=== PATIENT | female | born 1930 | race Caucasian/White ===

== ENCOUNTER 2016-08-27 01:29 | Inpatient (IN) | payer BC, MEDICARE ==
--- NOTE | 2016-08-27 01:44 | ED ---
General Adult HPI - General Chief complaint: Extremity Injury, Lower Stated complaint: Right Knee Pain-no injury Time Seen by Provider: 08/27/16 01:31 Source: patient, RN notes reviewed Mode of arrival: EMS Limitations: no limitations - History of Present Illness Initial comments: 85-year-old female presents emergency Department with a chief complaint of right knee pain as well as blood per rectum. Patient states she was started on Xeralto about to 3 months ago. Patient states she's noticed blood in her stool. Patient states that over the last week she's noticed some inflammation to the right knee and some tenderness to touch. Patient states today she is having difficult time walking so she thought that she should be seen. Patient states while she is here she thought she was as well. Patient denies any lightheadedness or dizziness. Patient denies any falls traumas or injuries. Patient states she was concerned. Patient denies any recent fever, chills, shortness of breath, chest pain, back pain, abdominal pain, nausea vomiting, numbness or tingling, dysuria or hematuria, constipation or diarrhea, headaches or visual changes, or any other current symptoms. - Related Data Home Medications Medication Instructions Recorded Confirmed Atenolol 25 mg PO BID 11/15/14 10/31/15 Furosemide [Lasix] 40 mg PO BID 11/15/14 10/31/15 Previous Rx's Medication Instructions Recorded Colchicine 0.6 mg PO RT-QID #10 tablet 10/31/15 HYDROcodone/APAP 5-325MG [[place] 1 each PO Q6HR PRN #20 tab 10/31/15 5-325] Allergies Allergy/AdvReac Type Severity Reaction Status Date / Time No Known Allergies Allergy Verified 08/27/16 01:40 Review of Systems ROS Statement: Those systems with pertinent positive or pertinent negative responses have been documented in the HPI. ROS Other: All systems not noted in ROS Statement are negative. Past Medical History Past Medical History: Atrial Fibrillation, Diabetes Mellitus, Hypertension Additional Past Medical History / Comment(s): gout, arthritis History of Any Multi-Drug Resistant Organisms: None Reported Past Surgical History: Adenoidectomy, Appendectomy, Heart Catheterization With Stent, Tonsillectomy Past Psychological History: No Psychological Hx Reported Smoking Status: Never smoker Past Alcohol Use History: None Reported Past Drug Use History: None Reported General Exam Limitations: no limitations General appearance: alert, in no apparent distress Head exam: Present: atraumatic, normocephalic, normal inspection Neck exam: Present: normal inspection. Absent: tenderness, meningismus, lymphadenopathy Respiratory exam: Present: normal lung sounds bilaterally. Absent: respiratory distress, wheezes, rales, rhonchi, stridor Cardiovascular Exam: Present: regular rate, normal rhythm, normal heart sounds. Absent: systolic murmur, diastolic murmur, rubs, gallop, clicks GI/Abdominal exam: Present: soft, normal bowel sounds. Absent: distended, tenderness, guarding, rebound, rigid Rectal exam: Present: normal inspection, normal rectal tone, bloody stool, hemorrhoids. Absent: mass, tenderness Right Upper Leg exam: Present: normal inspection, full ROM Knee exam: Present: full ROM, tenderness (To the anterior aspect of the knee), swelling (Anterior aspect), erythema (Anterior aspect). Absent: abrasion, laceration, ecchymosis, deformity, crepitus, dislocation Lower Leg exam: Present: full ROM. Absent: tenderness, swelling Neurovascular tendon exam: Present: no vascular compromise Back exam: Present: normal inspection Neurological exam: Present: alert, oriented X3, CN II-XII intact Psychiatric exam: Present: normal affect, normal mood Skin exam: Present: warm, dry, intact, normal color. Absent: rash Course Vital Signs 08/27/16 01:38 Temperature 98.7 F Pulse Rate 99 Respiratory 18 Rate Blood Pressure 134/64 O2 Sat by Pulse 96 Oximetry Medical Decision Making - Medical Decision Making 85-year-old female presents for appears to be a GI bleed as well as right knee pain. At this time lab work is reviewed that shows a hemoglobin of 7.1. Dr. Salomon Dykes was discussed the case with who would like patient transfuse. At this time we will hold the patient's overall toe. Patient also does appear to have a suprapatellar bursitis at this time. We did consult orthopedic or Dr. Latif child's request we did give the patient 1 dose of steroids here and put her on pain medication. She will be admitted. - Lab Data Result diagrams: 08/27/16 01:45 08/27/16 01:45 Lab Results 08/27/16 08/27/16 08/27/16 Range/Units 01:45 01:45 01:45 WBC 6.7 (3.8-10.6) k/uL RBC 2.53 L (3.80-5.40) m/uL Hgb 7.1 L (11.4-16.0) gm/dL Hct 22.3 L (34.0-46.0) % MCV 88.1 (80.0-100.0) fL MCH 28.0 (25.0-35.0) pg MCHC 31.8 (31.0-37.0) g/dL RDW 18.3 H (11.5-15.5) % Plt Count 161 (150-450) k/uL Neutrophils % 67 % Lymphocytes % 21 % Monocytes % 7 % Eosinophils % 2 % Basophils % 0 % Neutrophils # 4.5 (1.3-7.7) k/uL Lymphocytes # 1.4 (1.0-4.8) k/uL Monocytes # 0.4 (0-1.0) k/uL Eosinophils # 0.1 (0-0.7) k/uL Basophils # 0.0 (0-0.2) k/uL Hypochromasia Slight Anisocytosis Slight PT (9.0-12.0) sec INR (<1.1) APTT (22.0-30.0) sec Sodium 140 (137-145) mmol/L Potassium 4.7 (3.5-5.1) mmol/L Chloride 106 (98-107) mmol/L Carbon Dioxide 24 (22-30) mmol/L Anion Gap 10 mmol/L BUN 27 H (7-17) mg/dL Creatinine 1.10 H (0.52-1.04) mg/dL Est GFR (MDRD) Af Amer 57 (>60 ml/min/1.73 sqM) Est GFR (MDRD) Non-Af 47 (>60 ml/min/1.73 sqM) Glucose 175 H (74-99) mg/dL Uric Acid 5.9 (3.7-7.4) mg/dL Calcium 9.6 (8.4-10.2) mg/dL Total Bilirubin 0.5 (0.2-1.3) mg/dL AST 19 (14-36) U/L ALT 23 (9-52) U/L Alkaline Phosphatase 63 (38-126) U/L C-Reactive Protein 15.5 H (<10.0) mg/L Total Protein 6.3 (6.3-8.2) g/dL Albumin 3.9 (3.5-5.0) g/dL Stool Occult Blood (Negative) Blood Type A Negative Blood Type Recheck A Neg Antibody Screen NEGATIVE Spec Expiration Date 08/30/2016 - 234408/27/16 08/27/16 Range/Units 01:45 01:45 WBC (3.8-10.6) k/uL RBC (3.80-5.40) m/uL Hgb (11.4-16.0) gm/dL Hct (34.0-46.0) % MCV (80.0-100.0) fL MCH (25.0-35.0) pg MCHC (31.0-37.0) g/dL RDW (11.5-15.5) % Plt Count (150-450) k/uL Neutrophils % % Lymphocytes % % Monocytes % % Eosinophils % % Basophils % % Neutrophils # (1.3-7.7) k/uL Lymphocytes # (1.0-4.8) k/uL Monocytes # (0-1.0) k/uL Eosinophils # (0-0.7) k/uL Basophils # (0-0.2) k/uL Hypochromasia Anisocytosis PT 14.1 H (9.0-12.0) sec INR 1.4 (<1.1) APTT 30.2 H (22.0-30.0) sec Sodium (137-145) mmol/L Potassium (3.5-5.1) mmol/L Chloride (98-107) mmol/L Carbon Dioxide (22-30) mmol/L Anion Gap mmol/L BUN (7-17) mg/dL Creatinine (0.52-1.04) mg/dL Est GFR (MDRD) Af Amer (>60 ml/min/1.73 sqM) Est GFR (MDRD) Non-Af (>60 ml/min/1.73 sqM) Glucose (74-99) mg/dL Uric Acid (3.7-7.4) mg/dL Calcium (8.4-10.2) mg/dL Total Bilirubin (0.2-1.3) mg/dL AST (14-36) U/L ALT (9-52) U/L Alkaline Phosphatase (38-126) U/L C-Reactive Protein (<10.0) mg/L Total Protein (6.3-8.2) g/dL Albumin (3.5-5.0) g/dL Stool Occult Blood Positive H (Negative) Blood Type Blood Type Recheck Antibody Screen Spec Expiration Date Disposition Clinical Impression: GI bleed, Anemia, Suprapatellar bursitis of right knee Disposition: ADMITTED IP TO THIS [facility] Condition: Stable Referrals: Giuseppe Ferrell MD [Primary Care Provider] - 1-2 days Time of Disposition: 03:11 Decision Date: 08/27/16 Decision Time: 03:11
[2016-08-27] MEDS ORDERED: HYDROmorphone 1 MG/ML 1 ML SYRINGE IVP STA (01:58)
[2016-08-27 02:16] LABS: C Reactive Protein 15.5 mg/L (<10.0); Calcium 9.6 mg/dL (8.4-10.2); Potassium 4.7 mmol/L (3.5-5.1); Total Bilirubin 0.5 mg/dL (0.2-1.3); Total Protein 6.3 g/dL (6.3-8.2); Uric Acid 5.9 mg/dL (3.7-7.4)
[2016-08-27 02:18] LABS: INR 1.4 (<1.1); Partial Thromboplastin Time 30.2 sec (22.0-30.0); Prothrombin Time 14.1 sec (9.0-12.0)
[2016-08-27 02:22] LABS: Anisocytosis Slight; Basophils % (A) 0 %; CH 28.4; CHCM 32.4; Eosinophils # (A) 0.1 k/uL (0-0.7); Eosinophils % (A) 2 %; HCT 22.3 % (34.0-46.0); HDW 3.28; HGB 7.1 gm/dL (11.4-16.0); Hypochromasia Slight; Luc # (Auto) 0.25; Luc % (Auto) 4; Lymphocytes # (A) 1.4 k/uL (1.0-4.8); Lymphocytes % (A) 21 %; MCHC 31.8 g/dL (31.0-37.0); MCV 88.1 fL (80.0-100.0); Mean Platelet Volume 7.8; Monocytes # (A) 0.4 k/uL (0-1.0); Monocytes % (A) 7 %; Neutrophils # (A) 4.5 k/uL (1.3-7.7); Neutrophils % (A) 67 %; RBC 2.53 m/uL (3.80-5.40); RDW 18.3 % (11.5-15.5); WBC 6.7 k/uL (3.8-10.6); WBC (Perox) 6.85
--- NOTE | 2016-08-27 03:01 | XR ---
EXAM: XR Abdomen Complete, 2 or More Views CLINICAL HISTORY: Reason: Right knee pain and swelling 4-5 days. Blood found in underwear. TECHNIQUE: Frontal view of the abdomen/pelvis with upright view of the abdomen. COMPARISON: None. FINDINGS: Abdomen: Moderate to large amount of stool throughout the colon and rectum which may represent constipation. Nonobstructive bowel gas pattern. No free air. Cholecystectomy clips in the right upper quadrant. Phleboliths projected over the pelvis. Bones: No acute osseous abnormality identified. Degenerative changes of the hips and lumbar spine and pubic symphysis. Soft tissues: Normal. Lower chest: Normal. IMPRESSION: Moderate to large amount of stool throughout the colon and rectum may represent constipation. No evidence of bowel obstruction or free air. EXAM: XR Right Knee, 3 views CLINICAL HISTORY: Reason: Right knee pain and swelling 4-5 days. Blood found in underwear. TECHNIQUE: Three views of the right knee. COMPARISON: Right knee radiograph on 10/31/2015. FINDINGS: Bones/joints: No acute fracture or dislocation identified. Stable tricompartmental degenerative changes of the right knee, most prominent in the medial and patellofemoral compartments with joint space loss, osteophyte formation, and subchondral cyst formation. Osteopenia. Trace knee joint effusion, decreased compared to prior exam in 2016. Soft tissues: Vascular calcifications. Generalized soft tissue edema. IMPRESSION: 1. No acute fracture or dislocation. 2. Osteopenia with stable tricompartmental degenerative changes of the right knee. 3. Generalized soft tissue edema. Trace knee joint effusion, decreased compared to prior exam in 2016.
[2016-08-27] MEDS ORDERED: NALOXONE 0.4 MG/ML 1 ML VIAL IV PRN (03:08)
[2016-08-27] MEDS ORDERED: ONDANSETRON 4 MG/2 ML VIAL IVP PRN (03:08)
[2016-08-27] MEDS ORDERED: ACETAMINOPHEN TAB 325 MG TAB PO PRN (03:08)
[2016-08-27] MEDS ORDERED: methylPREDNISolone SOD SUCCI 125 MG/2 ML VIAL IV STA (03:10)
[2016-08-27 03:29] LABS: Erythrocyte Sedimentation Rate 47 mm/hr (0-20)
[2016-08-27] MEDS: SODIUM CHLORIDE 0.9% 1,000 ML IV SCH ×2 (03:57→16:32)
[2016-08-27] MEDS: HYDROcodone/APAP 5-325MG 1 EACH TAB PO PRN ×2 (04:18→08:29)
[2016-08-27 07:56] VITALS: RESP 16
[2016-08-27] MEDS: INSULIN LISPRO (humaLOG) 300 UNIT/3 ML VIAL SQ SCH ×4 (08:47→21:05)
[2016-08-27 08:50] LABS: Appearance,Urine Clear (Clear); Bacteria,Urine Rare /hpf; Bilirubin,Urine Negative (Negative); Glucose,Urine (UA) Negative (Negative); Ketones,Urine Negative (Negative); Leukocyte Esterase,Urine Moderate (Negative); Mucus,Urine Rare /hpf; Nitrite,Urine Negative (Negative); PH, Urine 5.5 (5.0-8.0); Particle Count 3284; Protein,Urine Negative (Negative); RBC,Urine 4 /hpf (0-5); Specific Gravity,Urine 1.008 (1.001-1.035); Squamous Epithelial Cell,Urine 1 /hpf (0-4); UA Billing (MACRO vs. MICRO) MICRO; Urobilinogen,Urine <2.0 mg/dL (<2.0); WBC,Urine 6 /hpf (0-5)
[2016-08-27 08:52] LABS: Glucose,Whole Blood 317 mg/dL (75-99)
--- NOTE | 2016-08-27 10:13 | P.CNOR ---
History of Present Illness - HPI Consult date: 08/27/16 History of present illness: This is an 85-year-old female admitted to [facility] through the emergency department yesterday with complaint of right knee pain and history of blood in her stools. She denies any trauma or injury to the right knee. She states that she is been having some increased pain to the right knee for the past couple of weeks. Past Medical History Past Medical History: Atrial Fibrillation, Diabetes Mellitus, Hypertension Additional Past Medical History / Comment(s): gout, arthritis History of Any Multi-Drug Resistant Organisms: None Reported Past Surgical History: Adenoidectomy, Appendectomy, Heart Catheterization With Stent, Tonsillectomy Additional Past Surgical History / Comment(s): 2 cardiac stents & Past Anesthesia/Blood Transfusion Reactions: No Reported Reaction Date of Last Stent Placement:: 03/2016 Past Psychological History: No Psychological Hx Reported Smoking Status: Never smoker Past Alcohol Use History: None Reported Past Drug Use History: None Reported - Past Family History Mother Family Medical History: Chest Pain / Angina, Coronary Artery Disease (CAD), Diabetes Mellitus Father Additional Family Medical History / Comment(s): stomach cancer Medications and Allergies Home Medications Medication Instructions Recorded Confirmed Type Furosemide [Lasix] 40 mg PO DAILY 11/15/14 08/27/16 History Allopurinol [Zyloprim] 100 mg PO DAILY 08/27/16 08/27/16 History Aspirin [Adult Low Dose Aspirin EC] 81 mg PO DAILY 08/27/16 08/27/16 History Atorvastatin [Lipitor] 20 mg PO HS 08/27/16 08/27/16 History Carvedilol [Coreg] 6.25 mg PO BID 08/27/16 08/27/16 History Clopidogrel [Plavix] 75 mg PO HS 08/27/16 08/27/16 History Digoxin [Lanoxin] 125 mcg PO DIRECTED 08/27/16 08/27/16 History INSULIN LISPRO (HumaLOG) [humaLOG] See Protocol SQ AC-TID 08/27/16 08/27/16 History Insulin Detemir [Levemir] 18 units SQ DAILY 08/27/16 08/27/16 History Lisinopril [Zestril] 10 mg PO HS 08/27/16 08/27/16 History Rivaroxaban [Xarelto] 15 mg PO DAILY 08/27/16 08/27/16 History Allergies Allergy/AdvReac Type Severity Reaction Status Date / Time No Known Allergies Allergy Verified 08/27/16 01:40 Physical Examination This is a pleasant 85-year-old female in no acute distress. She is alert and oriented 3. Exam of her lower extremities reveals mild erythema to the anterior aspect of the knee. There is minimal fluctuance to the prepatellar bursa. She has active knee flexion to about 75 with full extension. There is tenderness with palpation about the prepatellar bursa. There is mild increased warmth noted. She is able straight leg raise without difficulty. She has full foot and ankle motion without difficulty or pain. Neurovascular status to the lower extremities intact. Results Right knee x-ray reveals mild degenerative changes. No acute fracture identified. - Labs Labs: Abnormal Lab Results - Last 24 Hours (Table) 08/27/16 08/27/16 08/27/16 Range/Units 01:45 01:45 01:45 RBC 2.53 L (3.80-5.40) m/uL Hgb 7.1 L (11.4-16.0) gm/dL Hct 22.3 L (34.0-46.0) % RDW 18.3 H (11.5-15.5) % ESR 47 H (0-20) mm/hr PT (9.0-12.0) sec APTT (22.0-30.0) sec BUN 27 H (7-17) mg/dL Creatinine 1.10 H (0.52-1.04) mg/dL Glucose 175 H (74-99) mg/dL POC Glucose (mg/dL) (75-99) mg/dL C-Reactive Protein 15.5 H (<10.0) mg/L Ur Leukocyte Esterase (Negative) Urine WBC (0-5) /hpf Urine Bacteria (None) /hpf Urine Mucus (None) /hpf Stool Occult Blood (Negative) Crossmatch See Detail 08/27/16 08/27/16 08/27/16 Range/Units 01:45 01:45 07:30 RBC (3.80-5.40) m/uL Hgb (11.4-16.0) gm/dL Hct (34.0-46.0) % RDW (11.5-15.5) % ESR (0-20) mm/hr PT 14.1 H (9.0-12.0) sec APTT 30.2 H (22.0-30.0) sec BUN (7-17) mg/dL Creatinine (0.52-1.04) mg/dL Glucose (74-99) mg/dL POC Glucose (mg/dL) (75-99) mg/dL C-Reactive Protein (<10.0) mg/L Ur Leukocyte Esterase Moderate H (Negative) Urine WBC 6 H (0-5) /hpf Urine Bacteria Rare H (None) /hpf Urine Mucus Rare H (None) /hpf Stool Occult Blood Positive H (Negative) Crossmatch 08/27/16 Range/Units 08:47 RBC (3.80-5.40) m/uL Hgb (11.4-16.0) gm/dL Hct (34.0-46.0) % RDW (11.5-15.5) % ESR (0-20) mm/hr PT (9.0-12.0) sec APTT (22.0-30.0) sec BUN (7-17) mg/dL Creatinine (0.52-1.04) mg/dL Glucose (74-99) mg/dL POC Glucose (mg/dL) 317 H (75-99) mg/dL C-Reactive Protein (<10.0) mg/L Ur Leukocyte Esterase (Negative) Urine WBC (0-5) /hpf Urine Bacteria (None) /hpf Urine Mucus (None) /hpf Stool Occult Blood (Negative) Crossmatch H & H 08/27/16 Range/Units 01:45 Hgb 7.1 L (11.4-16.0) gm/dL Hct 22.3 L (34.0-46.0) % Coagulation 08/27/16 Range/Units 01:45 INR 1.4 (<1.1) Result Diagrams: 08/27/16 01:45 08/27/16 01:45 Assessment and Plan (1) Prepatellar bursitis, right knee Status: Acute (2) Right anterior knee pain Status: Acute (3) GI bleed Status: Acute Plan: The clinical and x-ray findings are discussed with the patient. Natural history of prepatellar bursitis is discussed. She states that she is improving since her admission. It is recommended she that she be immobilized for the next week or 2 pending on how she responds. There is no indication at this time for aspiration of the bursa. The patient is afebrile with normal white count. Normally we would recommend anti-inflammatory but this may be contraindicated with her current GI bleed. We'll continue to follow throughout her stay.
[2016-08-27 11:56] LABS: Glucose,Whole Blood 260 mg/dL (75-99)
[2016-08-27 12:01] LABS: Anisocytosis Slight; Basophils % (A) 0 %; Eosinophils % (A) 0 %; HCT 24.5 % (34.0-46.0); HDW 3.34; Hypochromasia Slight; Luc # (Auto) 0.07; Luc % (Auto) 1; Lymphocytes # (A) 0.5 k/uL (1.0-4.8); Lymphocytes % (A) 11 %; MCH 28.7 pg (25.0-35.0); MCHC 32.6 g/dL (31.0-37.0); Mean Platelet Volume 8.1; Monocytes # (A) 0.1 k/uL (0-1.0); Monocytes % (A) 2 %; Neutrophils # (A) 4.1 k/uL (1.3-7.7); Neutrophils % (A) 85 %; RBC 2.79 m/uL (3.80-5.40); RDW 17.2 % (11.5-15.5); WBC 4.8 k/uL (3.8-10.6); WBC (Perox) 5.07
[2016-08-27] MEDS: CARVEDILOL 6.25 MG TAB PO SCH ×2 (13:33→21:05)
[2016-08-27] MEDS: FUROSEMIDE 40 MG TAB PO SCH (13:34)
[2016-08-27] MEDS: MULTIVITAMINS, THERA 1 EACH TAB PO SCH (13:38)
[2016-08-27] MEDS: ALLOPURINOL 100 MG TAB PO SCH (13:38)
[2016-08-27 17:18] LABS: Glucose,Whole Blood 365 mg/dL (75-99)
--- NOTE | 2016-08-27 18:28 | HP ---
DATE OF ADMISSION: 08/27/2016 CHIEF COMPLAINT: Right knee pain and rectal bleeding. This is an 85-year-old white female was brought to the emergency room with because of right knee pain and also she gave history of recurrent rectal bleeding for the past 2 months. Patient has long-standing history of atrial fibrillation. She has been on Coumadin lately she went to [facility] to be with her daughter who took her to a physician there and he placed her on Xarelto and Coumadin was discontinued. Patient thinks that ever since she switched to Xarelto she has had recurrent rectal bleeding. She also has history of gouty arthritis and she has been having severe pain in her right knee. In the emergency room, her CBC showed a hemoglobin of 7.1 and her PT/INR and PTT are within normal limits. WBC and platelets were also within normal limits. An x-ray of the knee showed degenerative arthritis of joint friction. There was soft tissue swelling around the knee. X-ray of the abdomen did not show any evidence of any obstruction. The patient was admitted to the hospital for further evaluation and treatment. Her past medical history reveals that she has multiple chronic medical problems. She is known to have coronary artery disease and has had stent placements in the past. She also has chronic atrial fibrillation, hypertensive cardiovascular disease, diabetes mellitus, and also has history of gouty arthritis. Her current medications include: 1. Humalog insulin. 2. Plavix 75 mg daily. 3. Lipitor 20 mg daily. 4. Coreg 6.25 mg daily. 5. Aspirin 81 mg daily. 6. Zyloprim 100 mg daily. 7. Digoxin 125 mcg daily. 8. Lisinopril 10 mg daily. 9. Xarelto 15 mg daily. 10. Lasix 40 mg b.i.d. 11. Diagonal 5/325 one q.6 hours p.r.n. pain. She has no known drug allergies. SOCIAL HISTORY: She does not smoke. She does not drink alcohol. FAMILY HISTORY: Reveals that her mother had diabetes, hypothyroidism and hypertensive cardiovascular disease. REVIEW OF SYSTEMS: Patient denies any headache. Appetite has been poor lately. She denies any chest pain. She had some shortness of breath on exertion. She has no abdominal pain, but she has recurrent rectal bleeding. She has no polyuria or dysuria. She has no neurological symptoms. PHYSICAL EXAMINATION: Reveals an 85-year-old white female who is alert and oriented. She is in no acute distress. She is obese. Pulse 96 per minute, blood pressure 134/64, temperature 98.7, pulse ox 96. There is no jaundice. There is no generalized lymphadenopathy. Appears anemic. There are no petechiae or bruises. Examination of the ENT negative. Neck is supple. There is no jugular venous distention. There is no goiter. There is no carotid bruit. Heart is in atrial fibrillation with a controlled ventricular rate. Lungs reveal diminished breath sounds at both bases with a few scattered rhonchi bilaterally. ABDOMEN: Soft, obese, nontender. There is no mass palpable. Examination of the lower extremities revealed no pitting edema. Neurologic examination does not reveal any localizing signs. Her stool was positive for occult blood. IMPRESSION: 1. Rectal bleeding. 2. Acute blood loss anemia. 3. Acute prepatellar bursitis right knee. 4. History of coronary artery disease stent with a past history of stent placement. 5. Chronic atrial fibrillation. 6. Hypertensive cardiovascular disease. 7. History of gout. 8. Diabetes mellitus. 9. Renal insufficiency, possibly acute due to the dehydration. Patient will be admitted to the hospital for further evaluation and treatment and her hemoglobin is 7.1. We will give a 1 unit of packed cells transfusion. We will also place her back on her previous medications. Orthopedic consultation will be obtained with regards to her right knee pain and bursitis and also get a GI consultation and Dr. Frank has been consulted. Prognosis is guarded. The diagnoses, prognosis, and therapeutic plans were discussed in detail with the patient. The patient was admitted by me for Dr. Ferrell as I am covering him this weekend.
[2016-08-27 20:24] LABS: Glucose,Whole Blood 310 mg/dL (75-99)
[2016-08-27] MEDS: LISINOPRIL 10 MG TAB PO SCH (21:05)
[2016-08-27] MEDS: ATORVASTATIN 20 MG TAB PO SCH (21:05)
[2016-08-27] MEDS ORDERED: SODIUM CHLORIDE 0.9% 1,000 ML IV SCH (22:30)
--- NOTE | 2016-08-27 23:12 | P.CONS ---
History of Present Illness - Reason for Consult Consult date: 08/27/16 - History of Present Illness 85-year-old female who was admitted through the emergency department for right knee pain as well as blood per rectum. Patient states she was started on Xeralto about to 3 months ago. Patient states she's noticed blood in her stool. Patient states that over the last week she's noticed some inflammation to the right knee and some tenderness to touch. Patient states today she is having difficult time walking. Orthopedic evaluation noted. No interventions recommended for her patellar bursitis. Rectal exam in the ER revealed no masses. No history of colonoscopy. Patient reported constipation and hard stools with blood noted after she strains. Review of Systems Constitutional: No fever, chills or unintentional weight loss Neurologic: No headaches, double vision or sensory or motor changes Cardiopulmonary: No chest pains, SOB or palpitations Gastrointestinal: See PI above Genitourinary: No hematuria, frequency or burning on urination Endocrine: No diabetes or thyroid disease Muskuloskeletal: No joint pains or swelling Skin: No rashes Hematologic: No history of anemia or bleeding tendency Psychiatric: No anxiety or depression Past Medical History Past Medical History: Atrial Fibrillation, Diabetes Mellitus, Hypertension Additional Past Medical History / Comment(s): gout, arthritis History of Any Multi-Drug Resistant Organisms: None Reported Past Surgical History: Adenoidectomy, Appendectomy, Heart Catheterization With Stent, Tonsillectomy Additional Past Surgical History / Comment(s): 2 cardiac stents & Past Anesthesia/Blood Transfusion Reactions: No Reported Reaction Date of Last Stent Placement:: 03/2016 Past Psychological History: No Psychological Hx Reported Smoking Status: Never smoker Past Alcohol Use History: None Reported Past Drug Use History: None Reported - Past Family History Mother Family Medical History: Chest Pain / Angina, Coronary Artery Disease (CAD), Diabetes Mellitus Father Additional Family Medical History / Comment(s): stomach cancer Medications and Allergies Home Medications Medication Instructions Recorded Confirmed Type Furosemide [Lasix] 40 mg PO DAILY 11/15/14 08/27/16 History Allopurinol [Zyloprim] 100 mg PO DAILY 08/27/16 08/27/16 History Aspirin [Adult Low Dose Aspirin EC] 81 mg PO DAILY 08/27/16 08/27/16 History Atorvastatin [Lipitor] 20 mg PO HS 08/27/16 08/27/16 History Carvedilol [Coreg] 6.25 mg PO BID 08/27/16 08/27/16 History Clopidogrel [Plavix] 75 mg PO HS 08/27/16 08/27/16 History Digoxin [Lanoxin] 125 mcg PO MOWEFR 08/27/16 08/27/16 History HYDROcodone/APAP 5-325MG [[place] 1 tab PO Q6HR PRN 08/27/16 08/27/16 History 5-325] INSULIN LISPRO (HumaLOG) [humaLOG] See Protocol SQ AC-TID 08/27/16 08/27/16 History Insulin Detemir [Levemir] 18 units SQ DAILY 08/27/16 08/27/16 History Lisinopril [Zestril] 10 mg PO HS 08/27/16 08/27/16 History Multivitamins, Thera [Multivitamin 1 tab PO DAILY 08/27/16 08/27/16 History (formulary)] Rivaroxaban [Xarelto] 15 mg PO HS 08/27/16 08/27/16 History Allergies Allergy/AdvReac Type Severity Reaction Status Date / Time No Known Allergies Allergy Verified 08/27/16 10:57 Physical Exam Vitals: Vital Signs Temp Pulse Pulse Pulse Resp BP BP 08/27/16 15:00 97.9 F 89 16 125/58 08/27/16 08:10 98.8 F 68 16 121/87 08/27/16 07:00 97.8 F 68 16 121/87 08/27/16 05:40 97.5 F L 91 18 108/59 08/27/16 05:10 97.4 F L 63 18 113/56 08/27/16 05:00 97.8 F 76 20 132/60 08/27/16 03:59 98.0 F 110 H 16 138/74 08/27/16 03:19 97.4 F L 94 18 131/90 08/27/16 02:50 95 18 138/63 08/27/16 02:19 94 18 127/68 08/27/16 01:38 98.7 F 99 18 134/64 Pulse Ox 08/27/16 15:00 97 08/27/16 08:10 98 08/27/16 07:00 98 08/27/16 05:40 96 08/27/16 05:10 99 08/27/16 05:00 98 08/27/16 03:59 98 08/27/16 03:19 96 08/27/16 02:50 95 08/27/16 02:19 97 08/27/16 01:38 96 Intake and Output 08/27/16 08/27/16 08/28/16 14:59 22:59 06:59 Intake Total 310 Balance 310 Intake: Blood Product 310 Rc As-1 Unit 310 [id number] Other: Voiding Method Toilet Toilet # Voids 2 Weight 78.5 kg Patient Weight 08/28/16 06:59 Weight 78.5 kg General: Appeared stated age in NAD Head and neck: Normocephalic and atraumatic, conjunctivae pink and sclerae not icteric, mucous membranes moist and pink. No masses in the neck or tracheal shift Lungs: Clear to auscultation with no duullness to percussion Heart: Regular, no abnormal sounds, murmurs, gallops or friction rubs Abdomen: Soft, no masses, tenderness or organomegalies. BS present Extremities: No clubbing, cyanosis or edema Neurologic: Alert and oriented X 3. Cranial nerves grossly intact. No gross sensory or motor abnormalities. Results CBC & Chem 7: 08/28/16 06:44 08/28/16 06:44 Labs: Abnormal Lab Results - Last 24 Hours (Table) 08/27/16 08/27/16 08/27/16 Range/Units 01:45 01:45 01:45 RBC 2.53 L (3.80-5.40) m/uL Hgb 7.1 L (11.4-16.0) gm/dL Hct 22.3 L (34.0-46.0) % RDW 18.3 H (11.5-15.5) % Plt Count (150-450) k/uL Lymphocytes # (1.0-4.8) k/uL ESR 47 H (0-20) mm/hr PT (9.0-12.0) sec APTT (22.0-30.0) sec BUN 27 H (7-17) mg/dL Creatinine 1.10 H (0.52-1.04) mg/dL Glucose 175 H (74-99) mg/dL POC Glucose (mg/dL) (75-99) mg/dL C-Reactive Protein 15.5 H (<10.0) mg/L Ur Leukocyte Esterase (Negative) Urine WBC (0-5) /hpf Urine Bacteria (None) /hpf Urine Mucus (None) /hpf Stool Occult Blood (Negative) Crossmatch See Detail 08/27/16 08/27/16 08/27/16 Range/Units 01:45 01:45 07:30 RBC (3.80-5.40) m/uL Hgb (11.4-16.0) gm/dL Hct (34.0-46.0) % RDW (11.5-15.5) % Plt Count (150-450) k/uL Lymphocytes # (1.0-4.8) k/uL ESR (0-20) mm/hr PT 14.1 H (9.0-12.0) sec APTT 30.2 H (22.0-30.0) sec BUN (7-17) mg/dL Creatinine (0.52-1.04) mg/dL Glucose (74-99) mg/dL POC Glucose (mg/dL) (75-99) mg/dL C-Reactive Protein (<10.0) mg/L Ur Leukocyte Esterase Moderate H (Negative) Urine WBC 6 H (0-5) /hpf Urine Bacteria Rare H (None) /hpf Urine Mucus Rare H (None) /hpf Stool Occult Blood Positive H (Negative) Crossmatch 08/27/16 08/27/16 08/27/16 Range/Units 08:47 11:38 11:41 RBC 2.79 L (3.80-5.40) m/uL Hgb 8.0 L (11.4-16.0) gm/dL Hct 24.5 L (34.0-46.0) % RDW 17.2 H (11.5-15.5) % Plt Count 121 L (150-450) k/uL Lymphocytes # 0.5 L (1.0-4.8) k/uL ESR (0-20) mm/hr PT (9.0-12.0) sec APTT (22.0-30.0) sec BUN (7-17) mg/dL Creatinine (0.52-1.04) mg/dL Glucose (74-99) mg/dL POC Glucose (mg/dL) 317 H 260 H (75-99) mg/dL C-Reactive Protein (<10.0) mg/L Ur Leukocyte Esterase (Negative) Urine WBC (0-5) /hpf Urine Bacteria (None) /hpf Urine Mucus (None) /hpf Stool Occult Blood (Negative) Crossmatch 08/27/16 08/27/16 Range/Units 17:15 20:23 RBC (3.80-5.40) m/uL Hgb (11.4-16.0) gm/dL Hct (34.0-46.0) % RDW (11.5-15.5) % Plt Count (150-450) k/uL Lymphocytes # (1.0-4.8) k/uL ESR (0-20) mm/hr PT (9.0-12.0) sec APTT (22.0-30.0) sec BUN (7-17) mg/dL Creatinine (0.52-1.04) mg/dL Glucose (74-99) mg/dL POC Glucose (mg/dL) 365 H 310 H (75-99) mg/dL C-Reactive Protein (<10.0) mg/L Ur Leukocyte Esterase (Negative) Urine WBC (0-5) /hpf Urine Bacteria (None) /hpf Urine Mucus (None) /hpf Stool Occult Blood (Negative) Crossmatch Assessment and Plan Plan: Rectal bleeding likely related to perianal pathology, possibly hemorrhoids or fissures secondary to her constipation and hard stools and her use of blood thinners. The patient is recommended immobilization of her right knee for patellar bursitis. Will consider colonoscopy electively as outpatient unless condition changes.
[2016-08-28 07:06] LABS: Anisocytosis Slight; Basophils % (A) 0 %; Eosinophils % (A) 0 %; HCT 26.2 % (34.0-46.0); HDW 3.25; HGB 8.1 gm/dL (11.4-16.0); Hypochromasia Moderate; Luc # (Auto) 0.19; Luc % (Auto) 2; Lymphocytes # (A) 1.3 k/uL (1.0-4.8); Lymphocytes % (A) 16 %; MCH 27.9 pg (25.0-35.0); MCHC 30.8 g/dL (31.0-37.0); MCV 90.6 fL (80.0-100.0); Mean Platelet Volume 8.1; Monocytes # (A) 0.6 k/uL (0-1.0); Monocytes % (A) 7 %; Neutrophils # (A) 6.3 k/uL (1.3-7.7); Neutrophils % (A) 75 %; RBC 2.89 m/uL (3.80-5.40); RDW 17.4 % (11.5-15.5); Reticulocyte % 3.1 % (0.5-2.0); WBC 8.5 k/uL (3.8-10.6); WBC (Perox) 8.31
[2016-08-28 07:06] LABS: Glucose,Whole Blood 159 mg/dL (75-99)
[2016-08-28] MEDS: INSULIN LISPRO (humaLOG) 300 UNIT/3 ML VIAL SQ SCH ×4 (08:24→20:58)
[2016-08-28] MEDS: ALLOPURINOL 100 MG TAB PO SCH (08:33)
[2016-08-28] MEDS: FUROSEMIDE 40 MG TAB PO SCH (08:33)
[2016-08-28] MEDS: MULTIVITAMINS, THERA 1 EACH TAB PO SCH (08:33)
[2016-08-28] MEDS: CARVEDILOL 6.25 MG TAB PO SCH ×2 (08:33→20:57)
[2016-08-28 08:45] LABS: ALT 23 U/L (9-52); AST 15 U/L (14-36); Alkaline Phosphatase 57 U/L (38-126); Anion Gap 10 mmol/L; Blood Urea Nitrogen 21 mg/dL (7-17); Calcium 8.8 mg/dL (8.4-10.2); Carbon Dioxide 21 mmol/L (22-30); Chloride 109 mmol/L (98-107); Glucose 143 mg/dL (74-99); Non-African American GFR(MDRD) 55 (>60 ml/min/1.73 sqM); Potassium 4.6 mmol/L (3.5-5.1); Sodium 140 mmol/L (137-145); Total Bilirubin 0.7 mg/dL (0.2-1.3); Total Protein 6.2 g/dL (6.3-8.2)
[2016-08-28] MEDS ORDERED: INSULIN DETEMIR 100 UNIT/ML 10 ML VIAL SQ SCH (09:00)
[2016-08-28] MEDS ORDERED: DIGOXIN 125 MCG TAB PO SCH (09:00)
[2016-08-28] MEDS: ASPIRIN 81 MG CHEW PO SCH (11:42)
[2016-08-28] MEDS: CLOPIDOGREL 75 MG TAB PO SCH (11:42)
[2016-08-28] MEDS: HYDROcodone/APAP 5-325MG 1 EACH TAB PO PRN ×3 (11:45→17:55)
[2016-08-28 12:11] LABS: Iron 17 ug/dL (37-170)
[2016-08-28 12:22] LABS: Glucose,Whole Blood 213 mg/dL (75-99)
[2016-08-28 12:22] LABS: % Iron Saturation 5.4 % (20-50); Total Iron Binding Capacity 315 ug/dL (265-497)
--- NOTE | 2016-08-28 17:27 | P.PN ---
Subjective Principal diagnosis: Prepatellar bursitis right knee GI bleed This is an 85-year-old female who we are following regarding her prepatellar bursitis of the right knee and right knee pain. The patient has been in a knee immobilizer since yesterday. She removed today for a little while. States that her knee pain is significantly improved since yesterday. She has no new complaints or concerns today. Objective - Vital Signs Vital signs: Vital Signs Temp 98.5 F 08/28/16 14:56 Pulse 84 08/28/16 16:00 Resp 16 08/28/16 16:00 BP 100/57 08/28/16 14:56 Pulse Ox 98 08/28/16 14:56 Intake & Output 08/27/16 08/28/16 08/28/16 18:59 06:59 18:59 Intake Total 310 990 590 Balance 310 990 590 Weight 78.5 kg 78.5 kg Intake: IV 400 Sodium Chloride 0.9% 1, 400 000 ml @ 50 mls/hr IV . Q20H [facility] Rx#:[id number] Intake, IV Titration 350 Amount Sodium Chloride 0.9% 1, 350 000 ml @ 50 mls/hr IV . Q20H [facility] Rx#:[id number] Oral 590 240 Blood Product 310 Rc As-1 Unit 310 [id number] Other: Voiding Method Toilet Toilet Toilet # Voids 2 3 4 - Exam This is a pleasant 85-year-old female in no acute distress. She is alert and oriented 3. Exam of the right lower extremity reveals no erythema or ecchymosis. There is no swelling or fluctuance noted to the prepatellar bursa. There is a slight joint effusion noted. She has improved range of motion of the knee without difficulty or pain. Neurovascular status to the lower extremity is intact. - Labs CBC & Chem 7: 08/28/16 06:44 08/28/16 06:44 Labs: Abnormal Lab Results - Last 24 Hours (Table) 08/27/16 08/28/16 08/28/16 Range/Units 20:23 06:44 06:44 RBC 2.89 L (3.80-5.40) m/uL Hgb 8.1 L (11.4-16.0) gm/dL Hct 26.2 L (34.0-46.0) % MCHC 30.8 L (31.0-37.0) g/dL RDW 17.4 H (11.5-15.5) % Plt Count 149 L (150-450) k/uL Retic Count 3.1 H (0.5-2.0) % Chloride 109 H (98-107) mmol/L Carbon Dioxide 21 L (22-30) mmol/L BUN 21 H (7-17) mg/dL Glucose 143 H (74-99) mg/dL POC Glucose (mg/dL) 310 H (75-99) mg/dL Iron 17 L (37-170) ug/dL % Saturation 5.4 L (20-50) % Total Protein 6.2 L (6.3-8.2) g/dL Albumin 3.4 L (3.5-5.0) g/dL 08/28/16 08/28/16 Range/Units 07:01 12:17 RBC (3.80-5.40) m/uL Hgb (11.4-16.0) gm/dL Hct (34.0-46.0) % MCHC (31.0-37.0) g/dL RDW (11.5-15.5) % Plt Count (150-450) k/uL Retic Count (0.5-2.0) % Chloride (98-107) mmol/L Carbon Dioxide (22-30) mmol/L BUN (7-17) mg/dL Glucose (74-99) mg/dL POC Glucose (mg/dL) 159 H 213 H (75-99) mg/dL Iron (37-170) ug/dL % Saturation (20-50) % Total Protein (6.3-8.2) g/dL Albumin (3.5-5.0) g/dL Assessment and Plan (1) Prepatellar bursitis, right knee Status: Acute (2) Right anterior knee pain Status: Acute (3) GI bleed Status: Acute Plan: The clinical and x-ray findings are discussed with the patient. Natural history of prepatellar bursitis is discussed. She states that she is improving since her admission. It is recommended she that she be immobilized for the next week or 2 pending on how she responds. There is no indication at this time for aspiration of the bursa. The patient is afebrile with normal white count. Normally we would recommend anti-inflammatory but this may be contraindicated with her current GI bleed. She may be discharged from an orthopedic standpoint. The patient would like to follow-up with Dr. Jeff.
[2016-08-28 17:37] LABS: Glucose,Whole Blood 172 mg/dL (75-99)
[2016-08-28] MEDS: SODIUM FERRIC GLUCONAT-SUCROSE 125 MG in SODIUM CHLORIDE 0.9% 100 ML IVPB SCH (17:55)
[2016-08-28] MEDS: SODIUM CHLORIDE 0.9% 1,000 ML IV SCH (19:19)
[2016-08-28 20:36] LABS: Glucose,Whole Blood 160 mg/dL (75-99)
[2016-08-28] MEDS: ATORVASTATIN 20 MG TAB PO SCH (20:57)
[2016-08-28] MEDS: LISINOPRIL 10 MG TAB PO SCH (20:57)
[2016-08-29] MEDS: HYDROcodone/APAP 5-325MG 1 EACH TAB PO PRN ×2 (04:10→16:17)
[2016-08-29 07:24] LABS: Glucose,Whole Blood 155 mg/dL (75-99)
[2016-08-29 07:36] VITALS: BP 139/70; PULSE 98; TEMP 98
[2016-08-29] MEDS: SODIUM FERRIC GLUCONAT-SUCROSE 125 MG in SODIUM CHLORIDE 0.9% 100 ML IVPB SCH (08:16)
[2016-08-29] MEDS: INSULIN LISPRO (humaLOG) 300 UNIT/3 ML VIAL SQ SCH ×2 (08:16→11:58)
[2016-08-29] MEDS: ASPIRIN 81 MG CHEW PO SCH (08:17)
[2016-08-29] MEDS: ALLOPURINOL 100 MG TAB PO SCH (08:17)
[2016-08-29] MEDS: CARVEDILOL 6.25 MG TAB PO SCH (08:17)
[2016-08-29] MEDS: FUROSEMIDE 40 MG TAB PO SCH (08:18)
[2016-08-29] MEDS: CLOPIDOGREL 75 MG TAB PO SCH (08:18)
--- NOTE | 2016-08-29 08:43 | PN ---
DATE OF SERVICE: 08/28/2016 CHIEF COMPLAINT: Re-evaluation. HISTORY OF PRESENT ILLNESS: An 85-year-old who was admitted to the hospital with anemia. The patient also had evidence of lower gastrointestinal bleeding. The patient, however, tells me that about a month or so ago she had some melanotic stools. The patient has been on Xarelto, aspirin and Plavix. She had in April and May a couple of cardiac events. In April she had a stent placed. In May she had episodes of CHF. The patient at present is feeling much better. REVIEW OF SYSTEMS: NEURO: Denies any headaches, dizziness. PSYCH: No anxiety. CARDIAC: No chest pain, angina, palpitation. RESPIRATORY: No shortness of breath, cough, orthopnea, PND. GI: No nausea, vomiting, abdominal pain, diarrhea. Did have a bowel movement yesterday. She said it was dark-colored. : No symptoms of dysuria, hematuria. EXTREMITIES: No pain except to the right knee, which is improved. The patient is able to bear weight and walk. CARDIAC: Denies chest pain, angina, palpitations. RESPIRATORY: No shortness of breath, cough, hemoptysis. PHYSICAL EXAMINATION: Pleasant female. Vital signs reveal temperature 98.2, pulse 82, respirations 16, blood pressure 123/66, pulse ox 96% on room air. HEENT: Normocephalic. NECK: No JVD. Chest is clear to auscultation and percussion. CARDIAC: Irregularly irregular rhythm. Systolic murmur 2/6 at the apex. ABDOMEN: Soft. Bowel sounds present. Rectal examination reveals normal sphincter tone. Stool is brownish, slight amount of reddish mucus. Extremities reveal no edema. Good pulses, both upper and lower extremities. NEUROLOGIC: Awake, alert, oriented with well-coordinated movements. Right knee much improved. Much improved tenderness. The patient does have some warmth with good range of motion. Laboratory assessment: CBC showed a hemoglobin of 8.1, which is stable. Retic count was 3.1. BUN 21, creatinine 0.96, glucose 143, serum iron 17. Albumin 3.4. ASSESSMENT: 1. Gastrointestinal bleeding. 2. The patient on two antiplatelet agents and anticoagulant. 3. Recent stent placement. 4. Iron deficiency anemia. 5. Diabetes mellitus. PLAN: The patient will be given Benefir or iron gluconate IV, two doses at least prior to discharge. The patient will resume aspirin and Plavix for now. Maybe Xarelto in a week. Patient's condition discussed with the patient. Prognosis guarded. Will ambulate the patient today and discontinue the patient's right knee immobilizer. Patient's condition is stable. Prognosis guarded.
--- NOTE | 2016-08-29 09:50 | P.PN ---
Subjective Principal diagnosis: Rectal bleeding 85-year-old female reevaluated today in regards to perirectal bleeding. Last bowel movement was Sunday. Receiving intravenous iron. Denies hematemesis or hematochezia or melena. No abdominal pain. Objective - Vital Signs Vital signs: Vital Signs Temp 98 F 08/29/16 07:00 Pulse 98 08/29/16 07:00 Resp 16 08/29/16 07:00 BP 139/70 08/29/16 07:00 Pulse Ox 94 L 08/29/16 07:00 Intake & Output 08/28/16 08/29/16 08/29/16 18:59 06:59 18:59 Intake Total 590 820 Balance 590 820 Weight 78.5 kg Intake: Intake, IV Titration 350 100 Amount Sodium Chloride 0.9% 1, 350 000 ml @ 50 mls/hr IV . Q20H [facility] Rx#:[id number] Sodium Ferric Gluconat- 100 Sucrose 125 mg In Sodium Chloride 0.9% 100 ml @ 100 mls/hr IVPB DAILY [facility] Rx#:[id number] Oral 240 720 Other: Voiding Method Toilet Toilet # Voids 4 1 # Bowel Movements 1 - Exam General appearance: The patient is alert, oriented, in no acute distress. HET: Head is normocephalic and atraumatic. Pupils are equal and reactive. Oropharynx is clear without lesions. Neck: Supple without lymphadenopathy. Trachea midline. Heart: S1 S2. Regular rate and rhythm. Lungs: No crackles or wheezes are heard. Abdomen: Soft, nontender, nondistended with bowel sounds. No peritoneal signs. No palpable organomegaly or masses. Extremities: Normal skin color and turgor. No cyanosis, rash, ulceration, clubbing, or edema. Radial and pedal pulses are 2/4 bilaterally. Neurological: No focal deficits. Strength and sensation are grossly intact. Rectal: External nonthrombosed tag. Brown stool on finger. No bleeding. No palpable masses. - Labs CBC & Chem 7: 08/28/16 06:44 08/28/16 06:44 Labs: Abnormal Lab Results - Last 24 Hours (Table) 08/28/16 08/28/16 08/28/16 Range/Units 06:44 12:17 17:34 POC Glucose (mg/dL) 213 H 172 H (75-99) mg/dL Iron 17 L (37-170) ug/dL % Saturation 5.4 L (20-50) % 08/28/16 08/29/16 Range/Units 20:32 06:56 POC Glucose (mg/dL) 160 H 155 H (75-99) mg/dL Iron (37-170) ug/dL % Saturation (20-50) % Assessment and Plan (1) Rectal bleeding Narrative/Plan: Suspect perianal pathology in origin possibly hemorrhoidal possible fissure secondary to constipation anticoagulation medications. Status: Acute Plan: 1. Continue supportive measures. Discharge per medicine. 2. Stool softeners daily. 3. Outpatient colonoscopy advised if bleeding recurs and/or persists. Assessment and plan of care discussed with Dr. Shields.
[2016-08-29] MEDS ORDERED: SENNOSIDES-DOCUSATE SODIUM 1 EACH TAB PO SCH (10:00)
[2016-08-29 11:39] LABS: Glucose,Whole Blood 180 mg/dL (75-99)
[2016-08-29] MEDS: MULTIVITAMINS, THERA 1 EACH TAB PO SCH (11:58)
[2016-08-29] MEDS ORDERED: INSULIN DETEMIR 100 UNIT/ML 10 ML VIAL SQ SCH (21:00)
--- NOTE | 2016-09-03 15:03 | P.DS ---
Providers Date of admission: 08/27/16 02:46 Expected date of discharge: 08/29/16 Attending physician: Salomon Dykes Consults: 08/27/16 03:09 Consult Physician Routine Consulting Provider: Milan Moser Consult Reason/Comments: Suprapatellar bursitis Do you want consulting provider notified?: Yes Primary care physician: Giuseppe Ferrell [place] Hospital Course: This 85-year-old female was admitted to the hospital after presenting to the emergency room with complains of pain in the right knee joint. The patient was noted to be anemic in the stool was guaiac positive. The patient has been on aspirin and Plavix and Xarelto. She had been started on this regimen while she was in [place]. She had a subendocardial IL and a stent placed. The patient presents to the hospital because of knee pain. Patient is a poor historian. She did however say that she has had some black stools low while back while she was in [place]. She still occasionally has some blood in his stools. The patient denies any symptoms of dizziness or shortness of breath. She does have dyspnea on exertion. Following admission patient was monitored for any further bleeding. Her a hemoglobin remained stable at about 8.1 range. The patient stool was brown bed or discharge. The patient Xarelto been on hold. The patient was continued on aspirin and Plavix. On the outpatient in a week will resume patient's Xarelto and discontinue aspirin. Patient does run the risk of recurrent GI bleeding. She was seen by GI. They may scope her on the outpatient. Meanwhile patient congestive cardiac failure and coronary artery disease is stable. Patient discharged home on medications. Patient's and right knee evaluated by orthopedic. He did inject steroid in it. Her symptoms had improved some. 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 Patient plans to diet and medical therapy is very poor. She does have history of hypothyroidism on replacement therapy. History of diabetes mellitus on medical therapy. Again she will skip her insulin dosages quite often. She has been counseled number of times for better compliance. Final diagnosis to include 1. Anemia secondary to chronic GI blood loss 2. Recent myocardial infarction and stent placement 3. Coronary atherosclerosis 4. Diabetes mellitus with fair control 5. Chronic atrial fibrillation rate controlled 6. 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 Hypothyroidism 8. Poor compliance 9. Obesity 10. Right knee bursitis secondary to gout Patient Condition at Discharge: Stable Plan - Discharge Summary New Discharge Prescriptions: New Acetaminophen Tab [Tylenol] 650 mg PO Q6HR PRN tab PRN Reason: Mild Pain Or Fever > 100.5 Aspirin 81 mg PO DAILY Clopidogrel [Plavix] 75 mg PO DAILY tab Colchicine [Colcrys] 0.6 mg PO DAILY #30 tablet HYDROcodone/APAP 5-325MG [[place] 5-325] 1 each PO Q6HR PRN #60 tab PRN Reason: Moderate Pain Sennosides-Docusate Sodium [Senokot-S] 2 each PO BID tab Continue Furosemide [Lasix] 40 mg PO DAILY Clopidogrel [Plavix] 75 mg PO HS Atorvastatin [Lipitor] 20 mg PO HS Carvedilol [Coreg] 6.25 mg PO BID Aspirin [Adult Low Dose Aspirin EC] 81 mg PO DAILY Allopurinol [Zyloprim] 100 mg PO DAILY Digoxin [Lanoxin] 125 mcg PO MOWEFR Insulin Detemir [Levemir] 18 units SQ DAILY Lisinopril [Zestril] 10 mg PO HS INSULIN LISPRO (HumaLOG) [humaLOG] See Protocol SQ AC-TID HYDROcodone/APAP 5-325MG [[place] 5-325] 1 tab PO Q6HR PRN PRN Reason: Pain Levothyroxine Sodium 0.137 mg PO DAILY Discontinued Rivaroxaban [Xarelto] 15 mg PO HS No Action Multivitamins, Thera [Multivitamin (formulary)] 1 tab PO DAILY Discharge Medication List Furosemide [Lasix] 40 mg PO DAILY 11/15/14 [History] Allopurinol [Zyloprim] 100 mg PO DAILY 08/27/16 [History] Aspirin [Adult Low Dose Aspirin EC] 81 mg PO DAILY 08/27/16 [History] Atorvastatin [Lipitor] 20 mg PO HS 08/27/16 [History] Carvedilol [Coreg] 6.25 mg PO BID 08/27/16 [History] Clopidogrel [Plavix] 75 mg PO HS 08/27/16 [History] Digoxin [Lanoxin] 125 mcg PO MOWEFR 08/27/16 [History] HYDROcodone/APAP 5-325MG [[place] 5-325] 1 tab PO Q6HR PRN 08/27/16 [History] INSULIN LISPRO (HumaLOG) [humaLOG] See Protocol SQ AC-TID 08/27/16 [History] Insulin Detemir [Levemir] 18 units SQ DAILY 08/27/16 [History] Lisinopril [Zestril] 10 mg PO HS 08/27/16 [History] Multivitamins, Thera [Multivitamin (formulary)] 1 tab PO DAILY 08/27/16 [History ] Acetaminophen Tab [Tylenol] 650 mg PO Q6HR PRN tab 08/29/16 [Rx] Aspirin 81 mg PO DAILY 08/29/16 [Rx] Clopidogrel [Plavix] 75 mg PO DAILY tab 08/29/16 [Rx] Colchicine [Colcrys] 0.6 mg PO DAILY #30 tablet 08/29/16 [Rx] HYDROcodone/APAP 5-325MG [[place] 5-325] 1 each PO Q6HR PRN #60 tab 08/29/16 [Rx] Levothyroxine Sodium 0.137 mg PO DAILY 08/29/16 [History] Sennosides-Docusate Sodium [Senokot-S] 2 each PO BID tab 08/29/16 [Rx] Follow up Appointment(s)/Referral(s): Giuseppe Ferrell MD [Primary Care Provider] - 09/05/16 2:45 pm Del Jeff DO [Doctor of Osteopathic Medicine] - 09/19/16 1:00 pm Patient Instructions/Handouts: Hydrocodone/Acetaminophen (By mouth), Colchicine (By mouth), Low Fiber Diet (DC), Knee Bursitis (GEN), Anemia (DC) Activity/Diet/Wound Care/Special Instructions: Maintain knee immobilizer when up and ambulating. Diet low fiber Activity as tolerated Discharge Disposition: HOME SELF-CARE
== END 2016-08-29 17:00 | disposition home or self-care (01) | DRG 812 ==
LOC: EC 01:29 → 5ONC 02:46
PROVIDERS: ADMIT Internal Medicine; ATTEND Internal Medicine
PROC: 30230N1 Transfusion of Nonautologous Red Blood Cells into Peripheral Vein, Open Approach (ICD-10-PCS; principal; 2016-08-27)
DX: D62 Acute posthemorrhagic anemia (principal); K92.1 Melena; I11.0 Hypertensive heart disease with heart failure; I48.2 Chronic atrial fibrillation; I50.9 Heart failure, unspecified; E11.9 Type 2 diabetes mellitus without complications; E86.0 Dehydration; M10.00 Idiopathic gout, unspecified site; E03.9 Hypothyroidism, unspecified; E66.9 Obesity, unspecified; I25.2 Old myocardial infarction; I25.10 Atherosclerotic heart disease of native coronary artery without angina pectoris; M70.41 Prepatellar bursitis, right knee; D50.9 Iron deficiency anemia, unspecified; K59.00 Constipation, unspecified; M19.90 Unspecified osteoarthritis, unspecified site; N28.9 Disorder of kidney and ureter, unspecified; Z68.33 Body mass index [BMI] 33.0-33.9, adult; Z79.01 Long term (current) use of anticoagulants; Z79.02 Long term (current) use of antithrombotics/antiplatelets; Z79.4 Long term (current) use of insulin; Z79.82 Long term (current) use of aspirin; Z79.899 Other long term (current) drug therapy; Z95.5 Presence of coronary angioplasty implant and graft; Z82.49 Family history of ischemic heart disease and other diseases of the circulatory system
CPT/HCPCS: 36415; 74020; 80053; 81001; 82272; 82728; 83540; 83550; 84550; 85025; 85045; 85610; 85652; 85730; 86140; 86850; 86900; 86901; 86920; 96374; 99285

== ENCOUNTER 2017-10-02 19:18 | Emergency (ER) | payer MEDICARE ==
[2017-10-02 19:26] VITALS: RESP 18
[2017-10-02] MEDS ORDERED: DIPH,PERTUS(ACELL)TETVAC-LF 0.5 ML VIAL IM ONE (19:39)
--- NOTE | 2017-10-02 19:41 | ED ---
General Adult HPI - General Source: patient, family, RN notes reviewed Mode of arrival: ambulatory Limitations: no limitations <Anthony Kamara - Last Filed: 10/02/17 20:31> <Stewart Queen - Last Filed: 10/02/17 21:41> - General Chief complaint: Fall Stated complaint: Fall Time Seen by Provider: 10/02/17 19:33 - History of Present Illness Initial comments: Patient is a pleasant 86-year-old female presenting to the emergency department following a fall. Patient tripped over a leash. Patient complains mostly of discomfort of her right breast. There is also mild discomfort of the right knee. Patient states she did strike the right side of her head however just a little bit. No headache or confusion. No change in mental status. Patient does take Coumadin and Plavix. Patient did not take her medicine today. (Anthony Kamara) - Related Data Home Medications Medication Instructions Recorded Confirmed Furosemide [Lasix] 40 mg PO DAILY 11/15/14 08/27/16 Allopurinol [Zyloprim] 100 mg PO DAILY 08/27/16 08/27/16 Aspirin [Adult Low Dose Aspirin EC] 81 mg PO DAILY 08/27/16 08/27/16 Atorvastatin [Lipitor] 20 mg PO HS 08/27/16 08/27/16 Carvedilol [Coreg] 6.25 mg PO BID 08/27/16 08/27/16 Clopidogrel [Plavix] 75 mg PO HS 08/27/16 08/27/16 Digoxin [Lanoxin] 125 mcg PO MOWEFR 08/27/16 08/27/16 HYDROcodone/APAP 5-325MG [[place] 1 tab PO Q6HR PRN 08/27/16 08/27/16 5-325] INSULIN LISPRO (HumaLOG) [humaLOG] See Protocol SQ AC-TID 08/27/16 08/27/16 Insulin Detemir [Levemir] 18 units SQ DAILY 08/27/16 08/27/16 Lisinopril [Zestril] 10 mg PO HS 08/27/16 08/27/16 Multivitamins, Thera [Multivitamin 1 tab PO DAILY 08/27/16 08/27/16 (formulary)] Levothyroxine Sodium 0.137 mg PO DAILY 08/29/16 08/29/16 Previous Rx's Medication Instructions Recorded Acetaminophen Tab [Tylenol] 650 mg PO Q6HR PRN tab 08/29/16 Aspirin 81 mg PO DAILY 08/29/16 Clopidogrel [Plavix] 75 mg PO DAILY tab 08/29/16 Colchicine [Colcrys] 0.6 mg PO DAILY #30 tablet 08/29/16 HYDROcodone/APAP 5-325MG [[place] 1 each PO Q6HR PRN #60 tab 08/29/16 5-325] Sennosides-Docusate Sodium 2 each PO BID tab 08/29/16 [Senokot-S] HYDROcodone/APAP 5-325MG [[place]um[place] 1 tab PO Q6HR PRN #12 tab 10/02/17 5-325] Allergies Allergy/AdvReac Type Severity Reaction Status Date / Time No Known Allergies Allergy Verified 10/02/17 19:26 Review of Systems ROS Other: All systems not noted in ROS Statement are negative. Constitutional: Denies: fever Eyes: Denies: eye pain ENT: Denies: ear pain Respiratory: Denies: cough Cardiovascular: Denies: chest pain Endocrine: Denies: fatigue Gastrointestinal: Denies: abdominal pain Genitourinary: Denies: dysuria Musculoskeletal: Denies: back pain Neurological: Denies: headache, weakness, confusion <Anthony Kamara - Last Filed: 10/02/17 20:31> ROS Other: All systems not noted in ROS Statement are negative. <Stewart Queen - Last Filed: 10/02/17 21:41> ROS Statement: Those systems with pertinent positive or pertinent negative responses have been documented in the HPI. Past Medical History Past Medical History: Atrial Fibrillation, Diabetes Mellitus, Hypertension Additional Past Medical History / Comment(s): gout, arthritis History of Any Multi-Drug Resistant Organisms: None Reported Past Surgical History: Adenoidectomy, Appendectomy, Heart Catheterization With Stent, Tonsillectomy Additional Past Surgical History / Comment(s): 2 cardiac stents & Past Anesthesia/Blood Transfusion Reactions: No Reported Reaction Date of Last Stent Placement:: 03/2016 Past Psychological History: No Psychological Hx Reported Smoking Status: Never smoker Past Alcohol Use History: None Reported Past Drug Use History: None Reported - Past Family History Mother Family Medical History: Chest Pain / Angina, Coronary Artery Disease (CAD), Diabetes Mellitus Father Additional Family Medical History / Comment(s): stomach cancer <Anthony Kamara - Last Filed: 10/02/17 20:31> General Exam Limitations: no limitations General appearance: alert, in no apparent distress Head exam: Present: atraumatic, normocephalic Eye exam: Present: normal appearance, PERRL, EOMI. Absent: nystagmus ENT exam: Present: normal oropharynx Neck exam: Present: normal inspection. Absent: tenderness Respiratory exam: Present: normal lung sounds bilaterally Cardiovascular Exam: Present: regular rate, normal rhythm GI/Abdominal exam: Present: soft. Absent: tenderness Extremities exam: Present: tenderness (Tenderness and swelling right wrist near the distal radius. Distally the extremity is neurovascular intact.), other ( Minimal tenderness right knee with abrasions.) Back exam: Present: normal inspection. Absent: vertebral tenderness Neurological exam: Present: alert, CN II-XII intact. Absent: motor sensory deficit Expanded Neurological exam: Present: protecting the airway Speech: Present: fluid speech Cranial nerves: EOM's Intact: Normal Motor strength exam: RUE: 5, LUE: 5, RLE: 5, LLE: 5 Eye Response: (4) open spontaneously Motor Response: (6) obeys commands Verbal Response: (5) oriented Psychiatric exam: Present: normal affect, normal mood Skin exam: Present: abrasion (Right knee abrasion) <Anthony Kamara - Last Filed: 10/02/17 20:31> Vital Signs 10/02/17 19:24 Temperature 98.4 F Pulse Rate 78 Respiratory 18 Rate Blood Pressure 180/77 O2 Sat by Pulse 97 Oximetry Procedures - Orthopedic Splinting/Casting Injury #1 Side: right Upper Extremity Injury Location: short arm, wrist Upper Extremity Immobilizer: volar splint <Anthony Kamara - Last Filed: 10/02/17 20:31> Medical Decision Making <Anthony Kamara - Last Filed: 10/02/17 20:31> <Stewart Queen - Last Filed: 10/02/17 21:41> - Medical Decision Making 86 female status post fall with chief complaint of right wrist pain. There was minor head injury, no external signs of trauma. Patient reevaluated after sign out. She has a nonfocal neurologic exam. She is eager for discharge. She does have family at home will be able to observe her as she is on Coumadin. Head CT reviewed, negative for intracranial hemorrhage or mass effect. X-ray of both the knee and wrist are negative. Patient was placed in a splint for pain control and concern for possible small wrist fracture. Patient will follow -up with her primary care physician, may require repeat x-rays in 1 week. ( Stewart Queen) Disposition <Anthony Kamara - Last Filed: 10/02/17 20:31> Is patient prescribed a controlled substance at d/c from ED?: Yes When asked, does pt state using other controlled substances?: No If prescribed controlled substance>3 days was MAPS reviewed?: Prescribed <3 Days If Rx opioid, was Start Talking consent form obtained?: Yes Time of Disposition: 21:40 <Stewart Queen - Last Filed: 10/02/17 21:41> Clinical Impression: Wrist sprain, Knee abrasion Disposition: HOME SELF-CARE Condition: Good Instructions: Abrasion (ED), Wrist Sprain (ED) Prescriptions: HYDROcodone/APAP 5-325MG [Rumson 5-325] 1 tab PO Q6HR PRN #12 tab PRN Reason: Pain Referrals: Giuseppe Ferrell MD [Primary Care Provider] - 1-2 days
--- NOTE | 2017-10-02 21:15 | CT ---
EXAMINATION: CT brain wo con DATE AND TIME: 10/02/2017 7:59 PM ORDERING PROVIDER: Anthony Kamara DO CLINICAL INDICATION: Fall TECHNIQUE: Standard departmental protocol. COMPARISON: 07/17/2012 DESCRIPTION: The calvarium is intact. There is no intracranial hemorrhage. There is no mass or mass e ffect. There is no definite new attenuation defect. Remainder of the intra-axial and extra-axial comp artment examination is unremarkable. The paranasal sinuses, middle ear cavities, and mastoid sinus ai r cells are clear. The orbits are intact. IMPRESSION: NO ACUTE PROCESS.
--- NOTE | 2017-10-02 21:20 | XR ---
PROCEDURE: XR wrist complete RT 3 views DATE AND TIME: 10/02/2017 8:14 PM REFERRING PHYSICIAN: Anthony Kamara DO CLINICAL INDICATION: PHH, Pain after injury TECHNIQUE: Department protocol. COMPARISON: None FINDINGS: There is no fracture or malalignment. Marked multifocal osteoarthritis changes are noted, particularly prominent at the first LONGTERM and radio carpal joints. The soft tissues show soft tissue swelling at the wrist as well as marked atherosclerotic calcificati ons. IMPRESSION: Negative for fracture or malalignment.
--- NOTE | 2017-10-02 21:21 | XR ---
PROCEDURE: XR knee complete RT 3 views DATE AND TIME: 10/02/2017 8:14 PM REFERRING PHYSICIAN: Anthony Kamara DO CLINICAL INDICATION: PHH, Pain TECHNIQUE: Department protocol. COMPARISON: None FINDINGS: There is no fracture or malalignment. Atherosclerotic calcifications are noted. The soft tissues are otherwise unremarkable. IMPRESSION: NO ACUTE PROCESS.
[2017-10-02] MEDS ORDERED: HYDROcodone/APAP 5-325MG 1 EACH TAB PO STA (21:38)
[2017-10-02 21:53] VITALS: BP 168/74; PULSE 81; TEMP 97.6
== END 2017-10-02 21:51 | disposition home or self-care (01) ==
LOC: EC 19:18
DX: S63.501A Unspecified sprain of right wrist, initial encounter (principal); S80.211A Abrasion, right knee, initial encounter; S09.90XA Unspecified injury of head, initial encounter; I48.91 Unspecified atrial fibrillation; E11.9 Type 2 diabetes mellitus without complications; I10 Essential (primary) hypertension; M10.9 Gout, unspecified; M19.90 Unspecified osteoarthritis, unspecified site; Z95.5 Presence of coronary angioplasty implant and graft; Z79.82 Long term (current) use of aspirin; Z79.02 Long term (current) use of antithrombotics/antiplatelets; Z79.4 Long term (current) use of insulin; Z79.899 Other long term (current) drug therapy; Z23 Encounter for immunization; W01.10XA Fall on same level from slipping, tripping and stumbling with subsequent striking against unspecified object, initial encounter; Y92.009 Unspecified place in unspecified non-institutional (private) residence as the place of occurrence of the external cause
CPT/HCPCS: 29125; 70450; 90471; 90715; 99284

== ENCOUNTER 2017-11-09 10:58 | Emergency (ER) | payer MEDICARE ==
[2017-11-09 11:13] VITALS: RESP 18
--- NOTE | 2017-11-09 11:56 | ED ---
General Adult HPI - General Chief complaint: GI Bleed Stated complaint: BLACK STOOL, RT KNEE PAIN Time Seen by Provider: 11/09/17 11:23 Source: patient, RN notes reviewed, old records reviewed Mode of arrival: wheelchair Limitations: no limitations - History of Present Illness Initial comments: This is a 87-year-old female the ER for evaluation of likely GI bleed black tarry stools weakness. Patients also complaining - Related Data Home Medications Medication Instructions Recorded Confirmed Furosemide [Lasix] 40 mg PO DAILY 11/15/14 08/27/16 Allopurinol [Zyloprim] 100 mg PO DAILY 08/27/16 08/27/16 Aspirin [Adult Low Dose Aspirin EC] 81 mg PO DAILY 08/27/16 08/27/16 Atorvastatin [Lipitor] 20 mg PO HS 08/27/16 08/27/16 Carvedilol [Coreg] 6.25 mg PO BID 08/27/16 08/27/16 Clopidogrel [Plavix] 75 mg PO HS 08/27/16 08/27/16 Digoxin [Lanoxin] 125 mcg PO MOWEFR 08/27/16 08/27/16 HYDROcodone/APAP 5-325MG [[place] 1 tab PO Q6HR PRN 08/27/16 08/27/16 5-325] INSULIN LISPRO (HumaLOG) [humaLOG] See Protocol SQ AC-TID 08/27/16 08/27/16 Insulin Detemir [Levemir] 18 units SQ DAILY 08/27/16 08/27/16 Lisinopril [Zestril] 10 mg PO HS 08/27/16 08/27/16 Multivitamins, Thera [Multivitamin 1 tab PO DAILY 08/27/16 08/27/16 (formulary)] Levothyroxine Sodium 0.137 mg PO DAILY 08/29/16 08/29/16 Previous Rx's Medication Instructions Recorded Acetaminophen Tab [Tylenol] 650 mg PO Q6HR PRN tab 08/29/16 Aspirin 81 mg PO DAILY 08/29/16 Clopidogrel [Plavix] 75 mg PO DAILY tab 08/29/16 Colchicine [Colcrys] 0.6 mg PO DAILY #30 tablet 08/29/16 HYDROcodone/APAP 5-325MG [[place] 1 each PO Q6HR PRN #60 tab 06/06/17 5-325] Sennosides-Docusate Sodium 2 each PO BID tab 08/29/16 [Senokot-S] HYDROcodone/APAP 5-325MG [[place] 1 tab PO Q6HR PRN #12 tab 10/02/17 5-325] Allergies Allergy/AdvReac Type Severity Reaction Status Date / Time No Known Allergies Allergy Verified 11/09/17 11:13 Review of Systems ROS Statement: Those systems with pertinent positive or pertinent negative responses have been documented in the HPI. ROS Other: All systems not noted in ROS Statement are negative. Past Medical History Past Medical History: Atrial Fibrillation, Diabetes Mellitus, Hypertension, Osteoarthritis (OA) Additional Past Medical History / Comment(s): gout History of Any Multi-Drug Resistant Organisms: None Reported Past Surgical History: Adenoidectomy, Appendectomy, Heart Catheterization With Stent, Tonsillectomy Additional Past Surgical History / Comment(s): 2 cardiac stents & Past Anesthesia/Blood Transfusion Reactions: No Reported Reaction Date of Last Stent Placement:: 03/2016 Past Psychological History: No Psychological Hx Reported Smoking Status: Never smoker Past Alcohol Use History: None Reported Past Drug Use History: None Reported - Past Family History Mother Family Medical History: Chest Pain / Angina, Coronary Artery Disease (CAD), Diabetes Mellitus Father Additional Family Medical History / Comment(s): stomach cancer General Exam Limitations: no limitations General appearance: alert, in no apparent distress Head exam: Present: atraumatic, normocephalic, normal inspection Eye exam: Present: normal appearance, PERRL, EOMI. Absent: scleral icterus, conjunctival injection, periorbital swelling ENT exam: Present: normal exam, mucous membranes moist Neck exam: Present: normal inspection. Absent: tenderness, meningismus, lymphadenopathy Respiratory exam: Present: normal lung sounds bilaterally. Absent: respiratory distress, wheezes, rales, rhonchi, stridor Cardiovascular Exam: Present: regular rate, normal rhythm, normal heart sounds. Absent: systolic murmur, diastolic murmur, rubs, gallop, clicks GI/Abdominal exam: Present: soft, normal bowel sounds. Absent: distended, tenderness, guarding, rebound, rigid Extremities exam: Present: normal inspection, full ROM, normal capillary refill. Absent: tenderness, pedal edema, joint swelling, calf tenderness Back exam: Present: normal inspection Neurological exam: Present: alert, oriented X3, CN II-XII intact Psychiatric exam: Present: normal affect, normal mood Skin exam: Present: warm, dry, intact, normal color. Absent: rash Course Vital Signs 11/09/17 11/09/17 11/09/17 11:08 12:45 13:45 Temperature 98 F Pulse Rate 104 H 92 100 Respiratory 18 18 18 Rate Blood Pressure 84/54 137/72 128/65 O2 Sat by Pulse 99 99 99 Oximetry Medical Decision Making - Lab Data Result diagrams: 11/09/17 11:53 11/09/17 11:53 Lab Results 11/09/17 11/09/17 11/09/17 Range/Units 11:53 11:53 11:53 WBC 7.5 (3.8-10.6) k/uL RBC 3.31 L (3.80-5.40) m/uL Hgb 9.8 L (11.4-16.0) gm/dL Hct 29.6 L (34.0-46.0) % MCV 89.4 (80.0-100.0) fL MCH 29.6 (25.0-35.0) pg MCHC 33.1 (31.0-37.0) g/dL RDW 15.0 (11.5-15.5) % Plt Count 206 (150-450) k/uL Neutrophils % 81 % Lymphocytes % 11 % Monocytes % 6 % Eosinophils % 1 % Basophils % 0 % Neutrophils # 6.1 (1.3-7.7) k/uL Lymphocytes # 0.8 L (1.0-4.8) k/uL Monocytes # 0.5 (0-1.0) k/uL Eosinophils # 0.0 (0-0.7) k/uL Basophils # 0.0 (0-0.2) k/uL PT (9.0-12.0) sec INR (<1.2) APTT (22.0-30.0) sec Sodium 138 (137-145) mmol/L Potassium 4.8 (3.5-5.1) mmol/L Chloride 107 (98-107) mmol/L Carbon Dioxide 22 (22-30) mmol/L Anion Gap 9 mmol/L BUN 28 H (7-17) mg/dL Creatinine 1.10 H (0.52-1.04) mg/dL Est GFR (CKD-EPI)AfAm 52 (>60 ml/min/1.73 sqM) Est GFR (CKD-EPI)NonAf 45 (>60 ml/min/1.73 sqM) Glucose 183 H (74-99) mg/dL Calcium 9.5 (8.4-10.2) mg/dL Magnesium 2.1 (1.6-2.3) mg/dL Total Bilirubin 1.1 (0.2-1.3) mg/dL AST 18 (14-36) U/L ALT 24 (9-52) U/L Alkaline Phosphatase 90 (38-126) U/L Total Creatine Kinase 23 L (30-135) U/L CK-MB (CK-2) 0.8 (0.0-2.4) ng/mL CK-MB (CK-2) Rel Index 3.5 Troponin I 0.015 (0.000-0.034) ng/mL Total Protein 6.5 (6.3-8.2) g/dL Albumin 3.7 (3.5-5.0) g/dL Blood Type Blood Type Recheck Antibody Screen Spec Expiration Date 11/09/17 11/09/17 Range/Units 11:53 11:53 WBC (3.8-10.6) k/uL RBC (3.80-5.40) m/uL Hgb (11.4-16.0) gm/dL Hct (34.0-46.0) % MCV (80.0-100.0) fL MCH (25.0-35.0) pg MCHC (31.0-37.0) g/dL RDW (11.5-15.5) % Plt Count (150-450) k/uL Neutrophils % % Lymphocytes % % Monocytes % % Eosinophils % % Basophils % % Neutrophils # (1.3-7.7) k/uL Lymphocytes # (1.0-4.8) k/uL Monocytes # (0-1.0) k/uL Eosinophils # (0-0.7) k/uL Basophils # (0-0.2) k/uL PT 53.0 H (9.0-12.0) sec INR 5.8 H* (<1.2) APTT 57.7 H (22.0-30.0) sec Sodium (137-145) mmol/L Potassium (3.5-5.1) mmol/L Chloride (98-107) mmol/L Carbon Dioxide (22-30) mmol/L Anion Gap mmol/L BUN (7-17) mg/dL Creatinine (0.52-1.04) mg/dL Est GFR (CKD-EPI)AfAm (>60 ml/min/1.73 sqM) Est GFR (CKD-EPI)NonAf (>60 ml/min/1.73 sqM) Glucose (74-99) mg/dL Calcium (8.4-10.2) mg/dL Magnesium (1.6-2.3) mg/dL Total Bilirubin (0.2-1.3) mg/dL AST (14-36) U/L ALT (9-52) U/L Alkaline Phosphatase (38-126) U/L Total Creatine Kinase (30-135) U/L CK-MB (CK-2) (0.0-2.4) ng/mL CK-MB (CK-2) Rel Index Troponin I (0.000-0.034) ng/mL Total Protein (6.3-8.2) g/dL Albumin (3.5-5.0) g/dL Blood Type A Negative Blood Type Recheck No Antibody Screen NEGATIVE Spec Expiration Date 11/12/2017 - 235 Disposition Clinical Impression: Coumadin toxicity, Anemia, Fall Disposition: HOME SELF-CARE Condition: Good Instructions: Fall Prevention for Older Adults (ED) Is patient prescribed a controlled substance at d/c from ED?: No Referrals: Giuseppe Ferrell MD [Primary Care Provider] - 1-2 days
[2017-11-09 12:18] LABS: Basophils % (A) 0 %; Eosinophils % (A) 1 %; HCT 29.6 % (34.0-46.0); HGB 9.8 gm/dL (11.4-16.0); Lymphocytes # (A) 0.8 k/uL (1.0-4.8); Lymphocytes % (A) 11 %; MCH 29.6 pg (25.0-35.0); MCHC 33.1 g/dL (31.0-37.0); MCV 89.4 fL (80.0-100.0); Mean Platelet Volume 7.6; Monocytes # (A) 0.5 k/uL (0-1.0); Monocytes % (A) 6 %; Neutrophils # (A) 6.1 k/uL (1.3-7.7); Neutrophils % (A) 81 %; Platelet Count 206 k/uL (150-450); RBC 3.31 m/uL (3.80-5.40); WBC 7.5 k/uL (3.8-10.6)
[2017-11-09 12:26] LABS: Albumin 3.7 g/dL (3.5-5.0); Calcium 9.5 mg/dL (8.4-10.2); Magnesium 2.1 mg/dL (1.6-2.3); Potassium 4.8 mmol/L (3.5-5.1); Total Bilirubin 1.1 mg/dL (0.2-1.3); Total Protein 6.5 g/dL (6.3-8.2)
[2017-11-09 12:56] LABS: Creatine Kinase MB 0.8 ng/mL (0.0-2.4); Troponin I 0.015 ng/mL (0.000-0.034)
[2017-11-09 13:12] LABS: Partial Thromboplastin Time 57.7 sec (22.0-30.0)
[2017-11-09 13:21] LABS: INR 5.8 (<1.2)
[2017-11-09] MEDS ORDERED: SODIUM CHLORIDE 0.9% 1,000 ML IV STA (14:00)
[2017-11-09 15:30] VITALS: BP 138/76; PULSE 89; TEMP 98.7
== END 2017-11-09 15:30 | disposition home or self-care (01) ==
LOC: EC 10:58
DX: D64.9 Anemia, unspecified (principal); T45.515A Adverse effect of anticoagulants, initial encounter; I48.91 Unspecified atrial fibrillation; I10 Essential (primary) hypertension; E11.9 Type 2 diabetes mellitus without complications; M10.9 Gout, unspecified; M19.90 Unspecified osteoarthritis, unspecified site; Z79.02 Long term (current) use of antithrombotics/antiplatelets; Z79.4 Long term (current) use of insulin; Z79.82 Long term (current) use of aspirin; Z79.899 Other long term (current) drug therapy; Z90.49 Acquired absence of other specified parts of digestive tract; Z83.79 Family history of other diseases of the digestive system; W19.XXXA Unspecified fall, initial encounter
CPT/HCPCS: 36415; 80053; 82550; 82553; 83735; 84484; 85025; 85610; 85730; 86850; 86900; 86901; 96360; 99285

== ENCOUNTER → 2017-12-13 | Outpatient (CLI) | payer MEDICARE ==
--- NOTE | 2017-12-13 12:17 | XR ---
EXAMINATION TYPE: XR chest 2V DATE OF EXAM: 12/13/2017 COMPARISON: 12/01/2017 HISTORY: Shortness of breath TECHNIQUE: Frontal and lateral views of the chest are obtained. FINDINGS: Scattered senescent parenchymal changes noted. Hyperinflation compatible with COPD. No evidence for infiltrate. Linear atelectasis within the left mid lung zone unchanged from prior ehsan dy. Heart size is stable. Mediastinal structures are stable and grossly unremarkable. No evidence for hilar prominence. Degenerative changes dorsal spine. IMPRESSION: 1. Linear atelectasis within the left mid lung zone unchanged from prior study.
[2017-12-13 12:52] LABS: Anisocytosis Slight; HCT 39.2 % (34.0-46.0); HGB 12.7 gm/dL (11.4-16.0); Hypochromasia Slight; MCH 29.6 pg (25.0-35.0); MCHC 32.5 g/dL (31.0-37.0); MCV 91.1 fL (80.0-100.0); Mean Platelet Volume 7.7; Platelet Count 203 k/uL (150-450); RDW 16.6 % (11.5-15.5); WBC 9.7 k/uL (3.8-10.6)
[2017-12-13 12:59] LABS: Prothrombin Time 67.9 sec (9.0-12.0)
[2017-12-13 13:05] LABS: INR 7.4 (<1.2)
[2017-12-13 13:29] LABS: Albumin 3.9 g/dL (3.5-5.0); Calcium 9.4 mg/dL (8.4-10.2); Potassium 4.9 mmol/L (3.5-5.1); Total Bilirubin 0.7 mg/dL (0.2-1.3); Total Protein 6.6 g/dL (6.3-8.2)
== END | disposition home or self-care (01) ==
LOC: RADXRMAIN 11:48
PROVIDERS: ATTEND Internal Medicine
DX: J98.11 Atelectasis (principal); E11.9 Type 2 diabetes mellitus without complications; Z51.81 Encounter for therapeutic drug level monitoring
CPT/HCPCS: 36415; 71046; 80053; 85027; 85610

== ENCOUNTER 2018-01-06 13:14 | Emergency (ER) | payer MEDICARE ==
[2018-01-06 13:30] VITALS: RESP 18
[2018-01-06] MEDS ORDERED: OXYMETAZOLINE 0.05% NASL SPRAY 1 SPRAY BOTTLE NASAL STA (13:36)
[2018-01-06] MEDS ORDERED: SODIUM CHLORIDE 0.9% 1,000 ML IV ONE (13:36)
[2018-01-06 13:59] LABS: Glucose,Whole Blood 325 mg/dL (75-99)
[2018-01-06 14:09] LABS: Basophils % (A) 0 %; Eosinophils % (A) 1 %; HCT 33.4 % (34.0-46.0); HGB 11.4 gm/dL (11.4-16.0); Lymphocytes # (A) 0.9 k/uL (1.0-4.8); Lymphocytes % (A) 16 %; MCH 29.3 pg (25.0-35.0); MCHC 34.1 g/dL (31.0-37.0); Mean Platelet Volume 7.7; Monocytes # (A) 0.4 k/uL (0-1.0); Monocytes % (A) 7 %; Neutrophils # (A) 3.9 k/uL (1.3-7.7); Neutrophils % (A) 74 %; Platelet Count 163 k/uL (150-450); RBC 3.89 m/uL (3.80-5.40); RDW 15.9 % (11.5-15.5); WBC 5.3 k/uL (3.8-10.6)
[2018-01-06] MEDS ORDERED: INSULIN REGULAR 100 UNIT/ML VIAL IV ONE (14:12)
[2018-01-06 14:15] LABS: MCV 85.9 fL (80.0-100.0)
[2018-01-06 14:24] LABS: Calcium 8.7 mg/dL (8.4-10.2); Potassium 4.1 mmol/L (3.5-5.1)
--- NOTE | 2018-01-06 14:29 | XR ---
EXAMINATION TYPE: XR chest 2V DATE OF EXAM: 01/06/2018 COMPARISON: 12/13/2017 HISTORY: Cough TECHNIQUE: Frontal and lateral views of the chest are obtained. FINDINGS: There is linear density in the lingula left upper lobe. There are small linear density als o within the right lower lobe. Heart size is normal. There is no heart failure. 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 There is no pleural effusion. IMPRESSION: Subsegmental atelectasis increased slightly compared to last exam.. No heart failure.
[2018-01-06 15:09] LABS: Glucose,Whole Blood 258 mg/dL (75-99)
--- NOTE | 2018-01-06 15:20 | ED ---
ENT HPI - General Chief complaint: ENT Stated complaint: nosebleed Time Seen by Provider: 01/06/18 13:20 Source: patient, RN notes reviewed, old records reviewed Mode of arrival: EMS Limitations: physical limitation - History of Present Illness Initial comments: 87-year-old female presents return to chief complaint of a nosebleed. She states that she is on Coumadin. She reports that she is bleeding heavily. Upon arrival to the emergency department after calling EMS the nosebleed has stopped. She is a diabetic as concern for elevated blood sugar. She's been treated with 3 antibiotics for infection for upper a story symptoms. She finished her last antibiotic yesterday. Patient at this time states that she has been feeling better and back. She denies any other complaints at this time. reports she does manage her diabetes with Levemir. - Related Data Home Medications Medication Instructions Recorded Confirmed Furosemide [Lasix] 40 mg PO BID 11/15/14 01/06/18 Atorvastatin [Lipitor] 20 mg PO HS 08/27/16 01/06/18 Carvedilol [Coreg] 6.25 mg PO BID 08/27/16 01/06/18 Digoxin [Lanoxin] 125 mcg PO MOWEFR 08/27/16 01/06/18 Lisinopril [Zestril] 10 mg PO HS 08/27/16 01/06/18 Levothyroxine Sodium 137 mcg PO DAILY 08/29/16 01/06/18 Albuterol Inhaler [Ventolin Hfa 1 - 2 puff INHALATION RT-Q6H PRN 01/06/18 Inhaler] Linagliptin [Tradjenta] 5 mg PO DAILY 01/06/18 01/06/18 traMADol HCL [Ultram] 50 mg PO Q6H PRN 01/06/18 01/06/18 Previous Rx's Medication Instructions Recorded Aspirin 81 mg PO DAILY 08/29/16 Clopidogrel [Plavix] 75 mg PO DAILY tab 08/29/16 Allergies Allergy/AdvReac Type Severity Reaction Status Date / Time No Known Allergies Allergy Verified 01/06/18 14:44 Review of Systems ROS Statement: Those systems with pertinent positive or pertinent negative responses have been documented in the HPI. ROS Other: All systems not noted in ROS Statement are negative. Past Medical History Past Medical History: Atrial Fibrillation, Diabetes Mellitus, Hypertension, Osteoarthritis (OA) Additional Past Medical History / Comment(s): gout History of Any Multi-Drug Resistant Organisms: None Reported Past Surgical History: Adenoidectomy, Appendectomy, Heart Catheterization With Stent, Tonsillectomy Additional Past Surgical History / Comment(s): 2 cardiac stents ' & ' Past Anesthesia/Blood Transfusion Reactions: No Reported Reaction Date of Last Stent Placement:: 03/2016 Past Psychological History: No Psychological Hx Reported Smoking Status: Never smoker Past Alcohol Use History: None Reported Past Drug Use History: None Reported - Past Family History Mother Family Medical History: Chest Pain / Angina, Coronary Artery Disease (CAD), Diabetes Mellitus Father Additional Family Medical History / Comment(s): stomach cancer General Exam - General Exam Comments Initial Comments: 87-year-old female. Alert and oriented 3. No acute distress. Limitations: physical limitation General appearance: alert, in no apparent distress Head exam: Present: atraumatic, normocephalic, normal inspection Eye exam: Present: normal appearance, PERRL, EOMI. Absent: scleral icterus, conjunctival injection, periorbital swelling ENT exam: Present: normal exam, mucous membranes moist, other (In his right naris. No active bleeding at this time.) Neck exam: Present: normal inspection. Absent: tenderness, meningismus, lymphadenopathy Respiratory exam: Present: normal lung sounds bilaterally. Absent: respiratory distress, wheezes, rales, rhonchi, stridor Cardiovascular Exam: Present: regular rate, normal rhythm, normal heart sounds. Absent: systolic murmur, diastolic murmur, rubs, gallop, clicks GI/Abdominal exam: Present: soft, normal bowel sounds. Absent: distended, tenderness, guarding, rebound, rigid Extremities exam: Present: normal inspection, full ROM, normal capillary refill. Absent: tenderness, pedal edema, joint swelling, calf tenderness Back exam: Present: normal inspection Neurological exam: Present: alert, oriented X3, CN II-XII intact Psychiatric exam: Present: normal affect, normal mood Skin exam: Present: warm, dry, intact, normal color. Absent: rash Course Vital Signs 01/06/18 13:16 Temperature 97.8 F Pulse Rate 89 Respiratory 18 Rate Blood Pressure 136/65 O2 Sat by Pulse 98 Oximetry Medical Decision Making - Medical Decision Making 87-year-old female presents today with chief complaint of nosebleed. Upon arrival she's had no active bleeding. She is also concern for elevated blood pressures did check an Accu-Chek. Blood sugar is elevated at 380. Patient given IV fluids. Blood sugar came down to 250. We did not give the Patient insulin. She also is complaining of upper a story symptoms. She recently completed an antibiotic. Patient's chest x-ray was reviewed to be negative for any acute process. Patient at this time informed the normal lab work including hemoglobin. I discussed that she can follow-up with primary care physician. I will discharge Patient with prescription for Afrin. Discussed that she needs to put ointment within her nose to keep the tissue moistened. Patient agrees to treatment plan will comply. Return parameters were discussed. - Lab Data Result diagrams: 01/06/18 13:53 01/06/18 13:53 Lab Results 01/06/18 01/06/18 01/06/18 Range/Units 13:33 13:53 13:53 WBC 5.3 (3.8-10.6) k/uL RBC 3.89 (3.80-5.40) m/uL Hgb 11.4 (11.4-16.0) gm/dL Hct 33.4 L (34.0-46.0) % MCV 85.9 D (80.0-100.0) fL MCH 29.3 (25.0-35.0) pg MCHC 34.1 (31.0-37.0) g/dL RDW 15.9 H (11.5-15.5) % Plt Count 163 (150-450) k/uL Neutrophils % 74 % Lymphocytes % 16 % Monocytes % 7 % Eosinophils % 1 % Basophils % 0 % Neutrophils # 3.9 (1.3-7.7) k/uL Lymphocytes # 0.9 L (1.0-4.8) k/uL Monocytes # 0.4 (0-1.0) k/uL Eosinophils # 0.0 (0-0.7) k/uL Basophils # 0.0 (0-0.2) k/uL Sodium 138 (137-145) mmol/L Potassium 4.1 (3.5-5.1) mmol/L Chloride 103 (98-107) mmol/L Carbon Dioxide 26 (22-30) mmol/L Anion Gap 9 mmol/L BUN 18 H (7-17) mg/dL Creatinine 1.00 (0.52-1.04) mg/dL Est GFR (CKD-EPI)AfAm 59 (>60 ml/min/1.73 sqM) Est GFR (CKD-EPI)NonAf 51 (>60 ml/min/1.73 sqM) Glucose 274 H (74-99) mg/dL POC Glucose (mg/dL) 325 H (75-99) mg/dL POC Glu Fructose Loader ID Radhajune Calcium 8.7 (8.4-10.2) mg/dL 01/06/18 Range/Units 15:05 WBC (3.8-10.6) k/uL RBC (3.80-5.40) m/uL Hgb (11.4-16.0) gm/dL Hct (34.0-46.0) % MCV (80.0-100.0) fL MCH (25.0-35.0) pg MCHC (31.0-37.0) g/dL RDW (11.5-15.5) % Plt Count (150-450) k/uL Neutrophils % % Lymphocytes % % Monocytes % % Eosinophils % % Basophils % % Neutrophils # (1.3-7.7) k/uL Lymphocytes # (1.0-4.8) k/uL Monocytes # (0-1.0) k/uL Eosinophils # (0-0.7) k/uL Basophils # (0-0.2) k/uL Sodium (137-145) mmol/L Potassium (3.5-5.1) mmol/L Chloride (98-107) mmol/L Carbon Dioxide (22-30) mmol/L Anion Gap mmol/L BUN (7-17) mg/dL Creatinine (0.52-1.04) mg/dL Est GFR (CKD-EPI)AfAm (>60 ml/min/1.73 sqM) Est GFR (CKD-EPI)NonAf (>60 ml/min/1.73 sqM) Glucose (74-99) mg/dL POC Glucose (mg/dL) 258 H (75-99) mg/dL POC Glu Fructose Loader ID Juan Tara Calcium (8.4-10.2) mg/dL - Radiology Data Radiology results: report reviewed Chest x-rays negative for any acute process. Disposition Clinical Impression: Bleeding nose, Elevated blood sugar Disposition: HOME SELF-CARE Condition: Good Instructions: Nosebleed (ED) Additional Instructions: Patient is advised to apply a antibiotic ointment within the nose. Patient should use the Afrin spray if there is any further bleeding or return to the emergency department if it does recur. Patient should have close follow-up with primary care physician regards to managing blood sugars. Is patient prescribed a controlled substance at d/c from ED?: No Referrals: Giuseppe Ferrell MD [Primary Care Provider] - 1-2 days Time of Disposition: 15:18
[2018-01-06 15:51] LABS: Appearance,Urine Clear (Clear); Bilirubin,Urine Negative (Negative); Blood,Urine Negative (Negative); Color,Urine Colorless; Glucose,Urine (UA) 1+ (Negative); Ketones,Urine Negative (Negative); Leukocyte Esterase,Urine Negative (Negative); Nitrite,Urine Negative (Negative); Protein,Urine Negative (Negative); Specific Gravity,Urine 1.004 (1.001-1.035); Urobilinogen,Urine <2.0 mg/dL (<2.0)
[2018-01-06 16:18] VITALS: BP 134/83; PULSE 80; TEMP 98.2
== END 2018-01-06 16:16 | disposition home or self-care (01) ==
LOC: EC 13:14
DX: E11.65 Type 2 diabetes mellitus with hyperglycemia (principal); R04.0 Epistaxis; I48.91 Unspecified atrial fibrillation; I10 Essential (primary) hypertension; Z79.01 Long term (current) use of anticoagulants; Z79.84 Long term (current) use of oral hypoglycemic drugs; Z79.899 Other long term (current) drug therapy; Z83.3 Family history of diabetes mellitus
CPT/HCPCS: 36415; 71046; 80048; 81003; 85025; 96360; 99284

== ENCOUNTER 2018-01-11 11:26 | Emergency (ER) | payer MEDICARE ==
[2018-01-11 11:56] VITALS: BP 146/64; PULSE 91; RESP 18; TEMP 97.5
--- NOTE | 2018-01-11 12:08 | ED ---
Recheck HPI - General Chief Complaint: Recheck/Abnormal Lab/Rx Stated Complaint: Abnormal Labs Time Seen by Provider: 01/11/18 11:53 Source: patient, RN notes reviewed, old records reviewed Mode of arrival: ambulatory Limitations: no limitations - History of Present Illness Initial Comments: This is an 87-year-old female the ER for abnormal lab test. Patient suffered recently recurrent Nosebleeds and recently seen by ENT. Patient sent ER today for evaluation of elevated INR. Denies any active bleeding lightheadedness dizziness or weakness. Denies any recent trauma MD Complaint: abnormal lab (Elevated INR) -: unknown Symptoms Since Prior Visit: no new symptoms Context: called for abnormal lab result Associated Symptoms: none - Related Data Home Medications Medication Instructions Recorded Confirmed Furosemide [Lasix] 40 mg PO BID 11/15/14 01/11/18 Atorvastatin [Lipitor] 20 mg PO HS 08/27/16 01/11/18 Carvedilol [Coreg] 6.25 mg PO BID 08/27/16 01/11/18 Digoxin [Lanoxin] 125 mcg PO MOWEFR 08/27/16 01/11/18 Lisinopril [Zestril] 10 mg PO HS 08/27/16 01/11/18 Levothyroxine Sodium 137 mcg PO DAILY 08/29/16 01/11/18 Previous Rx's Medication Instructions Recorded Clopidogrel [Plavix] 75 mg PO DAILY tab 08/29/16 Allergies Allergy/AdvReac Type Severity Reaction Status Date / Time No Known Allergies Allergy Verified 01/11/18 12:03 Review of Systems ROS Statement: Those systems with pertinent positive or pertinent negative responses have been documented in the HPI. ROS Other: All systems not noted in ROS Statement are negative. Past Medical History Past Medical History: Atrial Fibrillation, Diabetes Mellitus, Hypertension, Osteoarthritis (OA) Additional Past Medical History / Comment(s): gout History of Any Multi-Drug Resistant Organisms: None Reported Past Surgical History: Adenoidectomy, Appendectomy, Heart Catheterization With Stent, Tonsillectomy Additional Past Surgical History / Comment(s): 2 cardiac stents ' & Past Anesthesia/Blood Transfusion Reactions: No Reported Reaction Date of Last Stent Placement:: 03/2016 Past Psychological History: No Psychological Hx Reported Smoking Status: Never smoker Past Alcohol Use History: None Reported Past Drug Use History: None Reported - Past Family History Mother Family Medical History: Chest Pain / Angina, Coronary Artery Disease (CAD), Diabetes Mellitus Father Additional Family Medical History / Comment(s): stomach cancer General Exam Limitations: no limitations General appearance: alert, in no apparent distress Head exam: Present: atraumatic, normocephalic, normal inspection Eye exam: Present: normal appearance, PERRL, EOMI. Absent: scleral icterus, conjunctival injection, periorbital swelling ENT exam: Present: normal exam, mucous membranes moist Neck exam: Present: normal inspection. Absent: tenderness, meningismus, lymphadenopathy Respiratory exam: Present: normal lung sounds bilaterally. Absent: respiratory distress, wheezes, rales, rhonchi, stridor Cardiovascular Exam: Present: regular rate, normal rhythm, normal heart sounds. Absent: systolic murmur, diastolic murmur, rubs, gallop, clicks GI/Abdominal exam: Present: soft, normal bowel sounds. Absent: distended, tenderness, guarding, rebound, rigid Extremities exam: Present: normal inspection, full ROM, normal capillary refill. Absent: tenderness, pedal edema, joint swelling, calf tenderness Back exam: Present: normal inspection Neurological exam: Present: alert, oriented X3, CN II-XII intact Psychiatric exam: Present: normal affect, normal mood Skin exam: Present: warm, dry, intact, normal color. Absent: rash Course Vital Signs 01/11/18 11:51 Temperature 97.5 F L Pulse Rate 91 Respiratory 18 Rate Blood Pressure 146/64 O2 Sat by Pulse 96 Oximetry Medical Decision Making - Medical Decision Making 87 female the ER for evaluation of abnormal lab tests, patient had elevated INR given vitamin K oral here in the emergency room, patient to be discharged home Disposition Clinical Impression: Abnormal laboratory test, Coumadin toxicity Disposition: HOME SELF-CARE Condition: Good Instructions: Warfarin (By mouth) Is patient prescribed a controlled substance at d/c from ED?: No Referrals: Giuseppe Ferrell MD [Primary Care Provider] - 1-2 days
[2018-01-11] MEDS ORDERED: PHYTONADIONE ORAL 5 MG/5 ML ORAL.SYRG PO STA (12:20)
== END 2018-01-11 12:50 | disposition home or self-care (01) ==
LOC: EC 11:26
DX: R79.1 Abnormal coagulation profile (principal); T45.515A Adverse effect of anticoagulants, initial encounter; I48.91 Unspecified atrial fibrillation; I10 Essential (primary) hypertension; Z95.5 Presence of coronary angioplasty implant and graft; Z79.899 Other long term (current) drug therapy
CPT/HCPCS: 99283

== ENCOUNTER → 2018-01-11 | Outpatient (CLI) | payer MEDICARE ==
[2018-01-11 08:41] LABS: Anisocytosis Slight; Basophils % (A) 0 %; Eosinophils # (A) 0.1 k/uL (0-0.7); Eosinophils % (A) 2 %; HCT 30.8 % (34.0-46.0); HGB 10.3 gm/dL (11.4-16.0); Hypochromasia Slight; Lymphocytes # (A) 0.8 k/uL (1.0-4.8); Lymphocytes % (A) 17 %; MCH 30.3 pg (25.0-35.0); MCHC 33.4 g/dL (31.0-37.0); MCV 90.7 fL (80.0-100.0); Mean Platelet Volume 7.8; Monocytes # (A) 0.3 k/uL (0-1.0); Monocytes % (A) 7 %; Neutrophils # (A) 3.4 k/uL (1.3-7.7); Neutrophils % (A) 72 %; Platelet Count 175 k/uL (150-450); RDW 16.1 % (11.5-15.5); WBC 4.7 k/uL (3.8-10.6)
[2018-01-11 08:56] LABS: Prothrombin Time 52.6 sec (9.0-12.0)
[2018-01-11 09:04] LABS: INR 5.8 (<1.2)
== END | disposition home or self-care (01) ==
LOC: LABWHC1 08:03
PROVIDERS: ATTEND Otolaryngology
DX: D64.9 Anemia, unspecified (principal)
CPT/HCPCS: 36415; 85025; 85610

== ENCOUNTER → 2018-01-30 | Outpatient (CLI) | payer MEDICARE ==
--- NOTE | 2018-01-30 14:57 | CT ---
EXAMINATION TYPE: CT sinus wo con DATE OF EXAM: 01/30/2018 COMPARISON: CT brain October 02, 2017 HISTORY: Sinus infection and SWAN per patient. Chronic sinusitis per order. CT DLP: 592 mGycm. Automated Exposure Control for Dose Reduction was Utilized. TECHNIQUE: CT scan of the sinuses is performed without contrast, axial images are obtained, coronal r eformatted images are also reviewed. FINDINGS: The paranasal sinuses including the frontal, ethmoid, sphenoid, and maxillary sinuses bila terally are well-aerated without abnormal opacification. The ostiomeatal complex is patent bilateral ly on the coronal images. Nasal septum remains deviated to right of midline. Visualized portion of mastoid air cells show no abnormal opacification. Scleral calcification both gl obes is redemonstrated. Visualized portion of brain parenchyma redemonstrates diffuse age-related ce rebral atrophy and chronic small vessel ischemic change. Patchy soft tissue density right extraocular canal is felt to reflect cerumen unchanged from prior. IMPRESSION: The sinuses are clear and the ostiomeatal complex is patent bilaterally. No significant c hange from recent CT.
== END | disposition home or self-care (01) ==
LOC: RADCTMAIN 14:23
PROVIDERS: ATTEND Otolaryngology
DX: J32.9 Chronic sinusitis, unspecified (principal)
CPT/HCPCS: 70486

== ENCOUNTER 2018-04-15 07:37 | Emergency (ER) | payer MEDICARE ==
[2018-04-15] MEDS ORDERED: SODIUM CHLORIDE 0.9% 1,000 ML IV STA (08:14)
--- NOTE | 2018-04-15 08:18 | ED ---
Abdominal Pain HPI - General Chief Complaint: Abdominal Pain Stated Complaint: Lower back pain, poss UTI Time Seen by Provider: 04/15/18 08:03 Source: patient, RN notes reviewed Mode of arrival: ambulatory Limitations: no limitations - History of Present Illness Initial Comments: Patient 87-year-old female presenting to the emergency room today with a chief complaint of increased urinary frequency and some hip pain bilaterally. She does admit that over the last month she's been having some symptoms of dysuria along with increased frequency. Did follow-up the family doctor. States this is been steadily getting worse over the last month. Patient denies any other complaints or symptoms. Patient denies any recent fever, chills, shortness of breath, chest pain, nausea or vomiting, numbness or tingling, constipation or diarrhea, headaches or visual changes, or any other complaints. - Related Data Home Medications Medication Instructions Recorded Confirmed Furosemide [Lasix] 40 mg PO BID 11/15/14 04/15/18 Atorvastatin [Lipitor] 20 mg PO HS 08/27/16 04/15/18 Carvedilol [Coreg] 6.25 mg PO BID 08/27/16 04/15/18 Digoxin [Lanoxin] 125 mcg PO MOWEFR 08/27/16 04/15/18 Lisinopril [Zestril] 10 mg PO HS 08/27/16 04/15/18 Levothyroxine Sodium 137 mcg PO DAILY 08/29/16 04/15/18 Previous Rx's Medication Instructions Recorded Clopidogrel [Plavix] 75 mg PO DAILY tab 08/29/16 Sulfamethox-Tmp 800-160Mg [Bactrim 1 tab PO Q12HR #20 tab 04/15/18 DS 800-160 mg] Allergies Allergy/AdvReac Type Severity Reaction Status Date / Time No Known Allergies Allergy Verified 04/15/18 08:01 Review of Systems ROS Statement: Those systems with pertinent positive or pertinent negative responses have been documented in the HPI. ROS Other: All systems not noted in ROS Statement are negative. Past Medical History Past Medical History: Atrial Fibrillation, Diabetes Mellitus, Hypertension, Osteoarthritis (OA) Additional Past Medical History / Comment(s): gout History of Any Multi-Drug Resistant Organisms: None Reported Past Surgical History: Adenoidectomy, Appendectomy, Heart Catheterization With Stent, Tonsillectomy Additional Past Surgical History / Comment(s): 2 cardiac stents ' & Past Anesthesia/Blood Transfusion Reactions: No Reported Reaction Date of Last Stent Placement:: 03/2016 Past Psychological History: No Psychological Hx Reported Smoking Status: Never smoker Past Alcohol Use History: None Reported Past Drug Use History: None Reported - Past Family History Mother Family Medical History: Chest Pain / Angina, Coronary Artery Disease (CAD), Diabetes Mellitus Father Additional Family Medical History / Comment(s): stomach cancer General Exam - General Exam Comments Initial Comments: General: The patient is awake and alert, in no distress, and does not appear acutely ill. Eye: There is normal conjunctiva bilaterally. No signs of icterus. Ears, nose, mouth and throat: There are moist mucous membranes and no oral lesions. Neck: The neck is supple, there is no tenderness or JVD. Cardiovascular: There is a regular rate and rhythm. No murmur, rub or gallop is appreciated. Respiratory: Lungs are clear to auscultation, respirations are non-labored, breath sounds are equal. No wheezes, stridor, rales, or rhonchi. Gastrointestinal: Abdomen soft on palpation. Does have tenderness in the lower abdomen both left and right quadrants. No rebound, guarding, CVA tenderness. Musculoskeletal: Normal ROM, no tenderness. Neurological: A&O x 3. CN II-XII intact, There are no obvious motor or sensory deficits. Coordination appears grossly intact. Speech is normal. Skin: Skin is warm and dry and no rashes or lesions are noted. Psychiatric: Cooperative, appropriate mood & affect, normal judgment. Limitations: no limitations Course Vital Signs 04/15/18 07:38 Temperature 98.8 F Pulse Rate 75 Respiratory 16 Rate Blood Pressure 159/85 O2 Sat by Pulse 98 Oximetry Medical Decision Making - Medical Decision Making Patient reexamined at this time shows no signs of distress is resting calmly. She does admit for the past month she's been having increased urinary frequency with dysuria. Patient's urinalysis does show evidence for urinary tract infection. Culture is pending. Patient given dose Rocephin here in emergency room. Vital stable no fever. No elevated white count. Patient doing well at this time will be discharged on continued on antibiotics. Patient advised follow-up the family doctor the next 2 days. - Lab Data Result diagrams: 04/15/18 08:30 04/15/18 08:30 Lab Results 04/15/18 04/15/18 04/15/18 Range/Units 08:10 08:30 08:30 WBC 6.2 (3.8-10.6) k/uL RBC 3.88 (3.80-5.40) m/uL Hgb 10.6 L (11.4-16.0) gm/dL Hct 33.7 L (34.0-46.0) % MCV 86.9 (80.0-100.0) fL MCH 27.3 (25.0-35.0) pg MCHC 31.4 (31.0-37.0) g/dL RDW 16.8 H (11.5-15.5) % Plt Count 175 (150-450) k/uL Neutrophils % 69 % Lymphocytes % 21 % Monocytes % 6 % Eosinophils % 2 % Basophils % 0 % Neutrophils # 4.3 (1.3-7.7) k/uL Lymphocytes # 1.3 (1.0-4.8) k/uL Monocytes # 0.4 (0-1.0) k/uL Eosinophils # 0.1 (0-0.7) k/uL Basophils # 0.0 (0-0.2) k/uL Hypochromasia Slight Anisocytosis Slight Sodium 142 (137-145) mmol/L Potassium 4.6 (3.5-5.1) mmol/L Chloride 111 H (98-107) mmol/L Carbon Dioxide 22 (22-30) mmol/L Anion Gap 9 mmol/L BUN 32 H (7-17) mg/dL Creatinine 1.13 H (0.52-1.04) mg/dL Est GFR (CKD-EPI)AfAm 51 (>60 ml/min/1.73 sqM) Est GFR (CKD-EPI)NonAf 44 (>60 ml/min/1.73 sqM) Glucose 203 H (74-99) mg/dL Calcium 9.3 (8.4-10.2) mg/dL Total Bilirubin 0.7 (0.2-1.3) mg/dL AST 29 (14-36) U/L ALT 26 (9-52) U/L Alkaline Phosphatase 67 (38-126) U/L Total Protein 7.0 (6.3-8.2) g/dL Albumin 4.1 (3.5-5.0) g/dL Amylase 32 (30-110) U/L Lipase 17 L (23-300) U/L Urine Color Yellow Urine Appearance Turbid H (Clear) Urine pH 5.5 (5.0-8.0) Ur Specific Odell 1.018 (1.001-1.035) Urine Protein 3+ H (Negative) Urine Glucose (UA) Negative (Negative) Urine Ketones Negative (Negative) Urine Blood Moderate H (Negative) Urine Nitrite Negative (Negative) Urine Bilirubin Negative (Negative) Urine Urobilinogen <2.0 (<2.0) mg/dL Ur Leukocyte Esterase Large H (Negative) Urine RBC 167 H (0-5) /hpf Urine WBC >182 H (0-5) /hpf Urine WBC Clumps Few H (None) /hpf Ur Squamous Epith Cells 8 H (0-4) /hpf Urine Bacteria Occasional H (None) /hpf Urine Mucus Rare H (None) /hpf Disposition Clinical Impression: UTI (urinary tract infection) Disposition: HOME SELF-CARE Condition: Good Instructions: Urinary Tract Infection in Women (ED) Additional Instructions: Please use medication as discussed. Please follow-up with family doctor in the next 2 days of symptoms have not improved. Please return to emergency room if the symptoms increase or worsen or for any other concerns. Prescriptions: Sulfamethox-Tmp 800-160Mg [Bactrim DS 800-160 mg] 1 tab PO Q12HR #20 tab Is patient prescribed a controlled substance at d/c from ED?: No Referrals: Giuseppe Ferrell MD [Primary Care Provider] - 1-2 days Time of Disposition: 09:14
[2018-04-15 08:45] LABS: Anisocytosis Slight; Basophils % (A) 0 %; Eosinophils # (A) 0.1 k/uL (0-0.7); Eosinophils % (A) 2 %; HCT 33.7 % (34.0-46.0); HGB 10.6 gm/dL (11.4-16.0); Hypochromasia Slight; Lymphocytes # (A) 1.3 k/uL (1.0-4.8); Lymphocytes % (A) 21 %; MCH 27.3 pg (25.0-35.0); MCHC 31.4 g/dL (31.0-37.0); MCV 86.9 fL (80.0-100.0); Mean Platelet Volume 6.8; Monocytes # (A) 0.4 k/uL (0-1.0); Monocytes % (A) 6 %; Neutrophils # (A) 4.3 k/uL (1.3-7.7); Neutrophils % (A) 69 %; Platelet Count 175 k/uL (150-450); RBC 3.88 m/uL (3.80-5.40); RDW 16.8 % (11.5-15.5); WBC 6.2 k/uL (3.8-10.6)
--- NOTE | 2018-04-15 08:50 | XR ---
EXAMINATION TYPE: XR KUB DATE OF EXAM: 04/15/2018 CLINICAL DATA: 87-year-old female with abdominal pain, LOCATED WITHIN [facility] COMPARISON: 12/26/2008 FINDINGS: Lung bases are clear. No evidence for free intraperitoneal air. Some scattered central small bowel gas is present. No dilated bowel loops or differential air-fluid l evels. Some scattered colonic air is also present with air distally to the rectum. Small central air- fluid levels are present. Cholecystectomy clips. IMPRESSION: 1. No evidence of bowel obstruction or free intraperitoneal air. 2. Some small centrally located small bowel air fluid levels could represent a regional ileus or ente ritis or could simply be transient.
[2018-04-15 08:51] LABS: Appearance,Urine Turbid (Clear); Bacteria,Urine Occasional /hpf; Bilirubin,Urine Negative (Negative); Blood,Urine Moderate (Negative); Color,Urine Yellow; Glucose,Urine (UA) Negative (Negative); Ketones,Urine Negative (Negative); Leukocyte Esterase,Urine Large (Negative); Mucus,Urine Rare /hpf; Nitrite,Urine Negative (Negative); PH, Urine 5.5 (5.0-8.0); Protein,Urine 3+ (Negative); RBC,Urine 167 /hpf (0-5); Specific Gravity,Urine 1.018 (1.001-1.035); Squamous Epithelial Cell,Urine 8 /hpf (0-4); Urobilinogen,Urine <2.0 mg/dL (<2.0); WBC,Urine >182 /hpf (0-5)
[2018-04-15 09:07] LABS: Albumin 4.1 g/dL (3.5-5.0); Calcium 9.3 mg/dL (8.4-10.2); Potassium 4.6 mmol/L (3.5-5.1); Total Bilirubin 0.7 mg/dL (0.2-1.3)
[2018-04-15 09:55] VITALS: BP 144/72; PULSE 69; RESP 18; TEMP 98.1
== END 2018-04-15 09:54 | disposition home or self-care (01) ==
LOC: EC 07:37
DX: N39.0 Urinary tract infection, site not specified (principal); I48.91 Unspecified atrial fibrillation; I10 Essential (primary) hypertension; Z79.02 Long term (current) use of antithrombotics/antiplatelets; Z79.899 Other long term (current) drug therapy; Z95.5 Presence of coronary angioplasty implant and graft
CPT/HCPCS: 36415; 80053; 82150; 83690; 85025; 81001; 87086; 74018; 99284; 96365; 96361; J0696

== ENCOUNTER 2018-08-02 12:51 | Emergency (ER) | payer MEDICARE ==
[2018-08-02 13:05] VITALS: BP 138/81; PULSE 110; RESP 18; TEMP 98.5
[2018-08-02] MEDS ORDERED: IBUPROFEN 400 MG TAB PO STA (13:31)
--- NOTE | 2018-08-02 13:54 | XR ---
EXAMINATION TYPE: XR knee complete RT DATE OF EXAM: 08/02/2018 COMPARISON: 08/27/2016 HISTORY: Pain TECHNIQUE: 3 views are submitted. FINDINGS: Severe narrowing of medial compartment of the knee joint. Diffuse osteopenia noted. There is hypertro phic spurring and a large suprapatellar bursal fluid collection. Vascular calcifications are seen. No definite acute fracture or dislocation. IMPRESSION: 1. Severe osteoarthritis which appears to be noticeably progressed from the prior exam.. Large suprap atellar bursal fluid collection noted. Recommend follow-up MRI.
--- NOTE | 2018-08-02 14:16 | ED ---
General Adult HPI - General Source: patient Mode of arrival: wheelchair Limitations: no limitations <Jamey Hyde - Last Filed: 08/02/18 13:34> <Stewart Mcdonnell - Last Filed: 08/02/18 15:07> - General Chief complaint: Extremity Injury, Lower Stated complaint: right knee pain Time Seen by Provider: 08/02/18 13:16 - History of Present Illness Initial comments: Patient is a 87-year-old female presenting to emergency Department with right knee pain. Patient states that she felt twice the last 3 weeks. Patient states that she refused to come in in hopes that it will get better but it didn't. Patient states that she went to see her primary care doctor Dr. Ferrell ordered x- rays but she was unable to return for follow-up because [place]. Patient states that her knee pain has progressively increased in severity and swelling. Patient states she has difficulty ambulating around the house. Patient states the pain is mild at rest but is exacerbated when weight- bearing. Patient denies any radiation to proximal dislike shortly. Patient states that she was taking Tylenol for pain control. Patient states that she normally uses a cane to ambulate around to house. Patient denies cough, chest pain, hemoptysis or pain along gastrocnemius. (Jamey Hyde) - Related Data Home Medications Medication Instructions Recorded Confirmed Furosemide [Lasix] 40 mg PO BID 11/15/14 08/02/18 Atorvastatin [Lipitor] 20 mg PO HS 08/27/16 08/02/18 Carvedilol [Coreg] 6.25 mg PO BID 08/27/16 08/02/18 Digoxin [Lanoxin] 125 mcg PO MOWEFR 08/27/16 08/02/18 Lisinopril [Zestril] 10 mg PO HS 08/27/16 08/02/18 Levothyroxine Sodium 137 mcg PO DAILY 08/29/16 08/02/18 Previous Rx's Medication Instructions Recorded Clopidogrel [Plavix] 75 mg PO DAILY tab 08/29/16 Ibuprofen [Motrin] 600 mg PO Q8HR PRN #20 tab 08/02/18 Allergies Allergy/AdvReac Type Severity Reaction Status Date / Time No Known Allergies Allergy Verified 08/02/18 13:58 Review of Systems ROS Other: All systems not noted in ROS Statement are negative. <Jamey Hyde - Last Filed: 08/02/18 13:34> ROS Other: All systems not noted in ROS Statement are negative. <Stewart Mcdonnell - Last Filed: 08/02/18 15:07> ROS Statement: Those systems with pertinent positive or pertinent negative responses have been documented in the HPI. Past Medical History Past Medical History: Atrial Fibrillation, Diabetes Mellitus, Hypertension, Osteoarthritis (OA) Additional Past Medical History / Comment(s): gout History of Any Multi-Drug Resistant Organisms: ESBL Date of last positivie culture/infection: 04/15/18 MDRO Source:: ESBL URINE Past Surgical History: Adenoidectomy, Appendectomy, Heart Catheterization With Stent, Tonsillectomy Additional Past Surgical History / Comment(s): 2 cardiac stents & Past Anesthesia/Blood Transfusion Reactions: No Reported Reaction Date of Last Stent Placement:: 03/2016 Past Psychological History: No Psychological Hx Reported Smoking Status: Never smoker Past Alcohol Use History: None Reported Past Drug Use History: None Reported - Past Family History Mother Family Medical History: Chest Pain / Angina, Coronary Artery Disease (CAD), Diabetes Mellitus Father Additional Family Medical History / Comment(s): stomach cancer <Jamey Hyde - Last Filed: 08/02/18 13:34> General Exam Limitations: no limitations General appearance: alert, in no apparent distress Head exam: Present: atraumatic, normocephalic, normal inspection Eye exam: Present: normal appearance, PERRL, EOMI. Absent: scleral icterus Pupils: Present: normal accommodation ENT exam: Present: normal exam, mucous membranes moist Neck exam: Present: normal inspection Respiratory exam: Present: normal lung sounds bilaterally. Absent: respiratory distress Cardiovascular Exam: Present: regular rate, normal rhythm Extremities exam: Present: normal inspection, full ROM Right Hip exam: Present: normal inspection, full ROM. Absent: tenderness Upper Leg exam: Present: normal inspection, full ROM. Absent: tenderness Knee exam: Present: tenderness, swelling, full knee extension. Absent: full ROM (Limited range of motion with flexion and extension due to pain.), abrasion, ecchymosis, deformity, crepitus, posterior draw sign Lower Leg exam: Present: normal inspection, full ROM. Absent: Homans' sign Ankle exam: Present: normal inspection, full ROM Foot/Toe exam: Present: normal inspection, full ROM. Absent: tenderness at base of 5th metatarsal Neurovascular tendon exam: Present: no vascular compromise Gait: unable to bear weight Back exam: Present: normal inspection, full ROM Neurological exam: Present: alert, oriented X3 Psychiatric exam: Present: normal affect, normal mood Skin exam: Present: warm, normal color <Jamey Hyde - Last Filed: 08/02/18 13:34> Course <Stewart Mcdonnell - Last Filed: 08/02/18 15:07> Vital Signs 08/02/18 13:01 Temperature 98.5 F Pulse Rate 110 H Respiratory 18 Rate Blood Pressure 138/81 O2 Sat by Pulse 97 Oximetry - Reevaluation(s) Reevaluation #1: 08/02/18 15:06 PA supervision: I personally do a [id number] evaluation the patient she did have 2 falls recently last 1 about 4-5 days ago and her knee x-rays were reviewed she has some swelling to the anterior knee x-ray showed degenerative changes but no evidence of any fractures. Patient will be discharged to follow- up with orthopedics she is in agreement with this. I do agree with the assessment and plan (Stewart Mcdonnell) Medical Decision Making <Jamey Hyde - Last Filed: 08/02/18 13:34> - Medical Decision Making Patient is a 87-year-old female presenting to the emergency department with right knee pain. Patient received 400 ibuprofen for pain control and x-ray was obtained. X-ray showing progressive osteoarthritic changes and suprapatellar fluid accumulation. Patient was advised to keep warm compresses and elevate legs above heart level. Patient will also be discharged with ibuprofen for pain control. Patient advised to follow-up with orthopedics as soon as possible. She denies return to emergency department if symptoms worsen. Case discussed with Dr. Mcdonnell who also came to examine the patient. Patient was initially tachycardic which can be attributed to that, moderate to severe pain and she was experienced. Patient was given ibuprofen to keep it under control. (Jamey Hyde) Disposition Is patient prescribed a controlled substance at d/c from ED?: No Time of Disposition: 14:44 <Jamey Hyde - Last Filed: 08/02/18 13:34> <Stewart Mcdonnell - Last Filed: 08/02/18 15:07> Clinical Impression: Knee pain, right anterior Disposition: HOME SELF-CARE Condition: Stable Instructions (If sedation given, give patient instructions): Knee Sprain (ED), Knee Pain (ED) Additional Instructions: Please alternate between ibuprofen and Tylenol for pain control. Please follow- up with orthopedics. Return to emergency department if symptoms worsen. Prescriptions: Ibuprofen [Motrin] 600 mg PO Q8HR PRN #20 tab PRN Reason: Pain Referrals: Giuseppe Ferrell MD [Primary Care Provider] - 1-2 days David Reynoso MD [STAFF PHYSICIAN] - 1-2 days
== END 2018-08-02 14:55 | disposition home or self-care (01) ==
LOC: EC 12:51
DX: M25.561 Pain in right knee (principal); R00.0 Tachycardia, unspecified; I48.91 Unspecified atrial fibrillation; E11.9 Type 2 diabetes mellitus without complications; I10 Essential (primary) hypertension; Z79.890 Hormone replacement therapy; Z79.899 Other long term (current) drug therapy; Z95.5 Presence of coronary angioplasty implant and graft
CPT/HCPCS: 99283